=== PATIENT | male | born 1950 | race Caucasian/White ===

== ENCOUNTER → 2018-07-15 | Day surgery (SDC) | payer MEDICARE, BC ==
[2018-07-14 12:05] LABS: BASOPHILS # (AUTO) 0.1 (0.0-0.1); BASOPHILS % 0.5 % (0.0-1.0); EOSINOPHILS # (AUTO) 0.2 (0.0-0.4); EOSINOPHILS % 1.7 % (0.0-6.0); HEMATOCRIT 44.7 % (38.2-49.6); LYMPHOCYTES # (AUTO) 2.1 (1.0-3.2); MEAN CORPUSCULAR HEMOGLOBIN 30.8 pg (28-32); MEAN CORPUSCULAR HGB CONC 33.6 g/dL (31-35); MEAN CORPUSCULAR VOLUME 91.8 fL (81-99); MONOCYTES # (AUTO) 0.6 (0.2-0.8); MONOCYTES % 5.7 % (4.4-11.3); NEUTROPHILS # (AUTO) 6.8 (2.1-6.9); NEUTROPHILS % 69.8 % (38.7-80.0); PLATELET COUNT 239 x10e3/uL (140-360); RED BLOOD COUNT 4.87 x10e6/uL (4.3-5.7); RED CELL DISTRIBUTION WIDTH 15.9 % (11.7-14.4)
[2018-07-14 12:17] LABS: INR 1.66; PROTHROMBIN TIME 18.4 seconds (11.9-14.5)
[2018-07-14 12:24] LABS: ANION GAP 12.4 mmol/L (8-16); CREATININE, SERUM 1.26 mg/dL (0.72-1.25); POTASSIUM 5.4 mmol/L (3.5-5.1)
[~2018-07-15] VITALS: Ht 188 cm; Wt 102.1 kg
[~2018-07-15] MED LIST: FENTANYL CITRATE/PF 100MCG/2 ML INJ ONE; LIDOCAINE HCL 2% LOCAL INJ 5 ML SDV VIAL INJ ONE; LISINOPRIL10 MG PO; MELOXICAM7.5 MG PO; METHIMAZOLE10 MG PO; METOPROLOL TART50 MG PO; PROPOFOL IV EMULSION 10 MG/ML 20 ML VIAL ONE; SODIUM CHLORIDE 0.9% 1000ML 1,000 ML ONE; SYMBICORT 16010.2 GM INH; XARELTO20 MG PO
[2018-07-15 06:51] VITALS: BP 180/111
[2018-07-15 07:56] VITALS: BP 159/101
[2018-07-15 08:05] VITALS: BP 150/96
--- NOTE | 2018-07-15 08:19 | Operative Report ---
DATE OF PROCEDURE: July 15, 2018 PROCEDURE PERFORMED: Direct current cardioversion. PREOPERATIVE DIAGNOSIS: Atrial fibrillation. POSTOPERATIVE DIAGNOSIS: Normal sinus rhythm. ESTIMATED BLOOD LOSS: Zero mL. SPECIMENS REMOVED: None. PROCEDURE DETAILS: After informed consent was obtained, the patient was brought to the endoscopy suite in the fasting, nonsedated state. Anesthesia was used for deep sedation with propofol. After adequate deep sedation was achieved, the patient underwent synchronized direct current cardioversion with 200 joules. This promptly restored normal sinus rhythm. The patient was then recovered by anesthesia successfully. The patient then returned to his room in stable condition. IMPRESSION AND PLAN: This is a 68-year-old man with a history of hypothyroidism and subsequently was found to have paroxysmal atrial fibrillation. He underwent successful direct current cardioversion with jainism of normal sinus rhythm. The patient will remain on metoprolol for AV bernie blockade and Xarelto for his anticoagulation for the next 4 weeks. The patient will follow up in 1 week for monitoring 12-lead electrocardiogram. Job#: [id number]
[2018-07-15 08:20] VITALS: BP 143/92
[2018-07-15 08:45] VITALS: BP 143/92
== END | disposition home or self-care (01) ==
LOC: CATH LAB 06:13
PROVIDERS: ATTEND Internal Medicine Cardiovascular Disease
DX: I48.0 Paroxysmal atrial fibrillation (principal); I10 Essential (primary) hypertension; E11.9 Type 2 diabetes mellitus without complications; J44.9 Chronic obstructive pulmonary disease, unspecified; R94.31 Abnormal electrocardiogram [ECG] [EKG]; E05.90 Thyrotoxicosis, unspecified without thyrotoxic crisis or storm; E03.9 Hypothyroidism, unspecified; I83.90 Asymptomatic varicose veins of unspecified lower extremity; F41.9 Anxiety disorder, unspecified; F17.210 Nicotine dependence, cigarettes, uncomplicated; Z88.8 Allergy status to other drugs, medicaments and biological substances; Z01.810 Encounter for preprocedural cardiovascular examination; Z01.812 Encounter for preprocedural laboratory examination; Z79.02 Long term (current) use of antithrombotics/antiplatelets
CPT/HCPCS: 36415; 80048; 85025; 85610; 92960; 93005; J2001; J7030

== ENCOUNTER 2019-05-07 14:49 | Inpatient (IN) | payer MEDICARE, BC ==
[~2019-05-07] VITALS: Ht 193 cm; Wt 96.8 kg
[~2019-05-07 14:49] MED LIST changes: -LIDOCAINE HCL 2% LOCAL INJ 5 ML SDV VIAL INJ ONE; -PROPOFOL IV EMULSION 10 MG/ML 20 ML VIAL ONE; -SODIUM CHLORIDE 0.9% 1000ML 1,000 ML ONE
--- OUTSIDE RECORDS SUMMARY | 2019-05-07 14:52 | XMS REPORT ---
Author Author [facility] Address Unknown Phone Unavailable Care Team Providers Care Front End Loader Operator Name Role Phone Unavailable Unavailable Payers Payer Name Policy Type Policy Number Effective Date Expiration Date Problems This patient has no known problems. Allergies, Adverse Reactions, Alerts Allergy Name Allergy Type Status Severity Reaction(s) Onset Date Inactive Date Treating Clinician Comments No Known Allergies DA Active U 2019-04-02 00:00:00 Medications This patient has no known medications. Results Test Description Test Time Test Comments Text Results Atomic Results Result Comments IMMUNOGLOBULIN E 2019-04-16 02:07:00 IMMUNOGLOBULIN E (test code=IGE) 229 IU/mL 6-495 Performed At: [address] [id number] Langley MD Ph:[phone] [id number] 16:48:00* Test Item Value Reference Range Comments GLUBED (test code=GLUBED) 201 mg/dL 74-106 Performed by certified offset press operator helper at [facility] [id number] 12:33:00* Test Item Value Reference Range Comments GLUBED (test code=GLUBED) 367 mg/dL 74-106 Performed by certified offset press operator helper at [facility] CBC W/O [id number] 06:39:00* Test Item Value Reference Range Comments WHITE BLOOD CELL (test code=WBC) 27.0 K/mm3 4.5-12.5 RED BLOOD CELL (test code=RBC) 4.92 mill/mm3 4.0-5.8 HEMOGLOBIN (test code=HGB) 14.2 gram/dL 13.0-17.5 HEMATOCRIT (test code=HCT) 45.2 % 42.0-52.0 MEAN CELL VOLUME (test code=MCV) 91.9 fL 80-98 MEAN CELL HGB (test code=MCH) 28.9 picogram 27.0-33.0 MEAN CELL HGB CONCETRATION (test code=MCHC) 31.4 gram/dL 33.0-36.0 RED CELL DISTRIBUTION WIDTH (test code=RDW) 12.9 % 11.6-16.2 PLATELET COUNT (test code=PLT) 359 K/mm3 150-450 MEAN PLATELET VOLUME (test code=MPV) 10.4 fL 6.7-11.0 [id number] 05:01:00* Test Item Value Reference Range Comments GLUBED (test code=GLUBED) 136 mg/dL 74-106 Performed by certified offset press operator helper at [facility] [id number] 20:52:00* Test Item Value Reference Range Comments GLUBED (test code=GLUBED) 383 mg/dL 74-106 Performed by certified offset press operator helper at [facility] [id number] 15:54:00* Test Item Value Reference Range Comments GLUBED (test code=GLUBED) 281 mg/dL 74-106 Performed by certified offset press operator helper at [facility] [id number] 12:57:00* Test Item Value Reference Range Comments GLUBED (test code=GLUBED) 215 mg/dL 74-106 Performed by certified offset press operator helper at [facility] CBC W/MANUAL [id number] 08:32:00* Test Item Value Reference Range Comments WHITE BLOOD CELL (test code=WBC) 30.5 K/mm3 4.5-12.5 RED BLOOD CELL (test code=RBC) 4.84 mill/mm3 4.0-5.8 HEMOGLOBIN (test code=HGB) 14.1 gram/dL 13.0-17.5 HEMATOCRIT (test code=HCT) 44.0 % 42.0-52.0 MEAN CELL VOLUME (test code=MCV) 90.9 fL 80-98 MEAN CELL HGB (test code=MCH) 29.1 picogram 27.0-33.0 MEAN CELL HGB CONCETRATION (test code=MCHC) 32.0 gram/dL 33.0-36.0 RED CELL DISTRIBUTION WIDTH (test code=RDW) 12.9 % 11.6-16.2 RED CELL DISTRIBUTION WIDTH SD (test code=RDW-SD) 42.6 fL 37.0-51.0 PLATELET COUNT (test code=PLT) 370 K/mm3 150-450 MEAN PLATELET VOLUME (test code=MPV) 10.3 fL 6.7-11.0 IMMATURE GRANULOCYTE % (test code=IG%) 1.9 % 0.0-5.0 NUCLEATED RBC % (test code=NRBC%) 0.0 % 0-0 NEUTROPHIL # (test code=NT#) 23.54 K/mm3 1.8-7.7 IMMATURE GRANULOCYTE # (test code=IG#) 0.57 x10 3/uL 0-0.03 LYMPHOCYTE # (test code=LY#) 4.25 K/mm3 1.0-5.0 MONOCYTE # (test code=MO#) 1.95 K/mm3 0-0.8 EOSINOPHIL # (test code=EO#) 0.08 K/mm3 0.0-0.5 BASOPHIL # (test code=BA#) 0.09 K/mm3 0.0-0.2 NUCLEATED RBC # (test code=NRBC#) 0.00 K/mm3 0.0-0.1 MANUAL DIFF REQUIRED (test code=MDIFF) YES STAIN ACCEPTABILITY (test code=STN ACCEPTABLE) STAIN ACCEPTABLE TOTAL CELLS COUNTED (test code=TCC) 115 #CELLS SEGMENTED NEUTROPHILS (test code=SEG) 82.6 % 39-69 BAND NEUTROPHIL (test code=BAND) 0 % 0-10 LYMPHOCYTE (test code=LYMPH) 6.1 % 25-55 REACTIVE LYMPH (test code=RELYMPH) 2.6 % MONOCYTE (test code=MON) 6.9 % 0-10 EOSINOPHIL (test code=EOS) 0 % 0.0-5.0 BASOPHIL (test code=BASO) 0 % 0-1.0 METAMYELOCYTE (test code=META) 0 % 0-0 MYELOCYTE (test code=MYELO) 0.9 % 0.0-0.0 PROMYELOCYTE (test code=PROM) 0.9 % 0-0 MORPHOLOGY COMMENT (test code=MOC) NORMAL PLATELET ESTIMATE (test code=PLTEST) ADEQUATE PLATELET MORPHOLOGY (test code=PLTMORPH) NORMAL IMMATURE FORMS (test code=IMMAT) 0 % 0-0 BASIC METABOLIC [id number] 08:00:00* Test Item Value Reference Range Comments SODIUM (test code=NA) 131 mmol/L 136-145 POTASSIUM (test code=K) 4.0 mmol/L 3.5-5.1 CHLORIDE (test code=CL) 89.0 mmol/L 98-107 CARBON DIOXIDE (test code=CO2) 37.0 mmol/L 21-32 ANION GAP (test code=GAP) 9.0 10-20 GLUCOSE (test code=GLU) 163 mg/dL 74-106 BLOOD UREA NITROGEN (test code=BUN) 43 mg/dL 7-18 GLOMERULAR FILTRATION RATE (test code=GFR) > 60 mL/min >=60 Estimated GFR by using Modified MDRD formula.Chronic kidney disease is defined as either kidney damageor GFR <60 mL/min/1.73 m2 for >3 months. CREATININE (test code=CREAT) 1.00 mg/dL 0.7-1.3 BUN/CREATININE RATIO (test code=BUN/CREA) 43.0 10-20 CALCIUM (test code=CA) 8.6 mg/dL 8.5-10.1 CBC W/MANUAL [id number] 07:19:00* Test Item Value Reference Range Comments WHITE BLOOD CELL (test code=WBC) 30.5 K/mm3 4.5-12.5 RED BLOOD CELL (test code=RBC) 4.84 mill/mm3 4.0-5.8 HEMOGLOBIN (test code=HGB) 14.1 gram/dL 13.0-17.5 HEMATOCRIT (test code=HCT) 44.0 % 42.0-52.0 MEAN CELL VOLUME (test code=MCV) 90.9 fL 80-98 MEAN CELL HGB (test code=MCH) 29.1 picogram 27.0-33.0 MEAN CELL HGB CONCETRATION (test code=MCHC) 32.0 gram/dL 33.0-36.0 RED CELL DISTRIBUTION WIDTH (test code=RDW) 12.9 % 11.6-16.2 RED CELL DISTRIBUTION WIDTH SD (test code=RDW-SD) 42.6 fL 37.0-51.0 PLATELET COUNT (test code=PLT) 370 K/mm3 150-450 MEAN PLATELET VOLUME (test code=MPV) 10.3 fL 6.7-11.0 IMMATURE GRANULOCYTE % (test code=IG%) 1.9 % 0.0-5.0 NUCLEATED RBC % (test code=NRBC%) 0.0 % 0-0 NEUTROPHIL # (test code=NT#) 23.54 K/mm3 1.8-7.7 IMMATURE GRANULOCYTE # (test code=IG#) 0.57 x10 3/uL 0-0.03 LYMPHOCYTE # (test code=LY#) 4.25 K/mm3 1.0-5.0 MONOCYTE # (test code=MO#) 1.95 K/mm3 0-0.8 EOSINOPHIL # (test code=EO#) 0.08 K/mm3 0.0-0.5 BASOPHIL # (test code=BA#) 0.09 K/mm3 0.0-0.2 NUCLEATED RBC # (test code=NRBC#) 0.00 K/mm3 0.0-0.1 MANUAL DIFF REQUIRED (test code=MDIFF) YES STAIN ACCEPTABILITY (test code=STN ACCEPTABLE) TOTAL CELLS COUNTED (test code=TCC) #CELLS SEGMENTED NEUTROPHILS (test code=SEG) % 39-69 LYMPHOCYTE (test code=LYMPH) % 25-55 MONOCYTE (test code=MON) % 0-10 EOSINOPHIL (test code=EOS) % 0.0-5.0 CABOT RINGS (test code=CAB) MORPHOLOGY COMMENT (test code=MOC) PLATELET ESTIMATE (test code=PLTEST) PLATELET MORPHOLOGY (test code=PLTMORPH) CBC W/MANUAL [id number] 07:19:00* Test Item Value Reference Range Comments WHITE BLOOD CELL (test code=WBC) 30.5 K/mm3 4.5-12.5 RED BLOOD CELL (test code=RBC) 4.84 mill/mm3 4.0-5.8 HEMOGLOBIN (test code=HGB) 14.1 gram/dL 13.0-17.5 HEMATOCRIT (test code=HCT) 44.0 % 42.0-52.0 MEAN CELL VOLUME (test code=MCV) 90.9 fL 80-98 MEAN CELL HGB (test code=MCH) 29.1 picogram 27.0-33.0 MEAN CELL HGB CONCETRATION (test code=MCHC) 32.0 gram/dL 33.0-36.0 RED CELL DISTRIBUTION WIDTH (test code=RDW) 12.9 % 11.6-16.2 RED CELL DISTRIBUTION WIDTH SD (test code=RDW-SD) 42.6 fL 37.0-51.0 PLATELET COUNT (test code=PLT) 370 K/mm3 150-450 MEAN PLATELET VOLUME (test code=MPV) 10.3 fL 6.7-11.0 IMMATURE GRANULOCYTE % (test code=IG%) 1.9 % 0.0-5.0 NUCLEATED RBC % (test code=NRBC%) 0.0 % 0-0 NEUTROPHIL # (test code=NT#) 23.54 K/mm3 1.8-7.7 IMMATURE GRANULOCYTE # (test code=IG#) 0.57 x10 3/uL 0-0.03 LYMPHOCYTE # (test code=LY#) 4.25 K/mm3 1.0-5.0 MONOCYTE # (test code=MO#) 1.95 K/mm3 0-0.8 EOSINOPHIL # (test code=EO#) 0.08 K/mm3 0.0-0.5 BASOPHIL # (test code=BA#) 0.09 K/mm3 0.0-0.2 NUCLEATED RBC # (test code=NRBC#) 0.00 K/mm3 0.0-0.1 MANUAL DIFF REQUIRED (test code=MDIFF) YES STAIN ACCEPTABILITY (test code=STN ACCEPTABLE) TOTAL CELLS COUNTED (test code=TCC) #CELLS SEGMENTED NEUTROPHILS (test code=SEG) % 39-69 LYMPHOCYTE (test code=LYMPH) % 25-55 MONOCYTE (test code=MON) % 0-10 EOSINOPHIL (test code=EOS) % 0.0-5.0 CABOT RINGS (test code=CAB) MORPHOLOGY COMMENT (test code=MOC) PLATELET ESTIMATE (test code=PLTEST) PLATELET MORPHOLOGY (test code=PLTMORPH) CBC W/MANUAL [id number] 07:19:00* Test Item Value Reference Range Comments WHITE BLOOD CELL (test code=WBC) 30.5 K/mm3 4.5-12.5 RED BLOOD CELL (test code=RBC) 4.84 mill/mm3 4.0-5.8 HEMOGLOBIN (test code=HGB) 14.1 gram/dL 13.0-17.5 HEMATOCRIT (test code=HCT) 44.0 % 42.0-52.0 MEAN CELL VOLUME (test code=MCV) 90.9 fL 80-98 MEAN CELL HGB (test code=MCH) 29.1 picogram 27.0-33.0 MEAN CELL HGB CONCETRATION (test code=MCHC) 32.0 gram/dL 33.0-36.0 RED CELL DISTRIBUTION WIDTH (test code=RDW) 12.9 % 11.6-16.2 RED CELL DISTRIBUTION WIDTH SD (test code=RDW-SD) 42.6 fL 37.0-51.0 PLATELET COUNT (test code=PLT) 370 K/mm3 150-450 MEAN PLATELET VOLUME (test code=MPV) 10.3 fL 6.7-11.0 IMMATURE GRANULOCYTE % (test code=IG%) 1.9 % 0.0-5.0 NUCLEATED RBC % (test code=NRBC%) 0.0 % 0-0 NEUTROPHIL # (test code=NT#) 23.54 K/mm3 1.8-7.7 IMMATURE GRANULOCYTE # (test code=IG#) 0.57 x10 3/uL 0-0.03 LYMPHOCYTE # (test code=LY#) 4.25 K/mm3 1.0-5.0 MONOCYTE # (test code=MO#) 1.95 K/mm3 0-0.8 EOSINOPHIL # (test code=EO#) 0.08 K/mm3 0.0-0.5 BASOPHIL # (test code=BA#) 0.09 K/mm3 0.0-0.2 NUCLEATED RBC # (test code=NRBC#) 0.00 K/mm3 0.0-0.1 MANUAL DIFF REQUIRED (test code=MDIFF) YES STAIN ACCEPTABILITY (test code=STN ACCEPTABLE) TOTAL CELLS COUNTED (test code=TCC) #CELLS SEGMENTED NEUTROPHILS (test code=SEG) % 39-69 LYMPHOCYTE (test code=LYMPH) % 25-55 MONOCYTE (test code=MON) % 0-10 EOSINOPHIL (test code=EOS) % 0.0-5.0 MORPHOLOGY COMMENT (test code=MOC) PLATELET ESTIMATE (test code=PLTEST) PLATELET MORPHOLOGY (test code=PLTMORPH) CBC W/MANUAL [id number] 07:19:00* Test Item Value Reference Range Comments WHITE BLOOD CELL (test code=WBC) 30.5 K/mm3 4.5-12.5 RED BLOOD CELL (test code=RBC) 4.84 mill/mm3 4.0-5.8 HEMOGLOBIN (test code=HGB) 14.1 gram/dL 13.0-17.5 HEMATOCRIT (test code=HCT) 44.0 % 42.0-52.0 MEAN CELL VOLUME (test code=MCV) 90.9 fL 80-98 MEAN CELL HGB (test code=MCH) 29.1 picogram 27.0-33.0 MEAN CELL HGB CONCETRATION (test code=MCHC) 32.0 gram/dL 33.0-36.0 RED CELL DISTRIBUTION WIDTH (test code=RDW) 12.9 % 11.6-16.2 RED CELL DISTRIBUTION WIDTH SD (test code=RDW-SD) 42.6 fL 37.0-51.0 PLATELET COUNT (test code=PLT) 370 K/mm3 150-450 MEAN PLATELET VOLUME (test code=MPV) 10.3 fL 6.7-11.0 IMMATURE GRANULOCYTE % (test code=IG%) 1.9 % 0.0-5.0 NUCLEATED RBC % (test code=NRBC%) 0.0 % 0-0 NEUTROPHIL # (test code=NT#) 23.54 K/mm3 1.8-7.7 IMMATURE GRANULOCYTE # (test code=IG#) 0.57 x10 3/uL 0-0.03 LYMPHOCYTE # (test code=LY#) 4.25 K/mm3 1.0-5.0 MONOCYTE # (test code=MO#) 1.95 K/mm3 0-0.8 EOSINOPHIL # (test code=EO#) 0.08 K/mm3 0.0-0.5 BASOPHIL # (test code=BA#) 0.09 K/mm3 0.0-0.2 NUCLEATED RBC # (test code=NRBC#) 0.00 K/mm3 0.0-0.1 MANUAL DIFF REQUIRED (test code=MDIFF) YES STAIN ACCEPTABILITY (test code=STN ACCEPTABLE) TOTAL CELLS COUNTED (test code=TCC) #CELLS SEGMENTED NEUTROPHILS (test code=SEG) % 39-69 LYMPHOCYTE (test code=LYMPH) % 25-55 MONOCYTE (test code=MON) % 0-10 MORPHOLOGY COMMENT (test code=MOC) PLATELET ESTIMATE (test code=PLTEST) PLATELET MORPHOLOGY (test code=PLTMORPH) CBC W/MANUAL [id number] 07:19:00* Test Item Value Reference Range Comments WHITE BLOOD CELL (test code=WBC) 30.5 K/mm3 4.5-12.5 RED BLOOD CELL (test code=RBC) 4.84 mill/mm3 4.0-5.8 HEMOGLOBIN (test code=HGB) 14.1 gram/dL 13.0-17.5 HEMATOCRIT (test code=HCT) 44.0 % 42.0-52.0 MEAN CELL VOLUME (test code=MCV) 90.9 fL 80-98 MEAN CELL HGB (test code=MCH) 29.1 picogram 27.0-33.0 MEAN CELL HGB CONCETRATION (test code=MCHC) 32.0 gram/dL 33.0-36.0 RED CELL DISTRIBUTION WIDTH (test code=RDW) 12.9 % 11.6-16.2 RED CELL DISTRIBUTION WIDTH SD (test code=RDW-SD) 42.6 fL 37.0-51.0 PLATELET COUNT (test code=PLT) 370 K/mm3 150-450 MEAN PLATELET VOLUME (test code=MPV) 10.3 fL 6.7-11.0 IMMATURE GRANULOCYTE % (test code=IG%) 1.9 % 0.0-5.0 NUCLEATED RBC % (test code=NRBC%) 0.0 % 0-0 NEUTROPHIL # (test code=NT#) 23.54 K/mm3 1.8-7.7 IMMATURE GRANULOCYTE # (test code=IG#) 0.57 x10 3/uL 0-0.03 LYMPHOCYTE # (test code=LY#) 4.25 K/mm3 1.0-5.0 MONOCYTE # (test code=MO#) 1.95 K/mm3 0-0.8 EOSINOPHIL # (test code=EO#) 0.08 K/mm3 0.0-0.5 BASOPHIL # (test code=BA#) 0.09 K/mm3 0.0-0.2 NUCLEATED RBC # (test code=NRBC#) 0.00 K/mm3 0.0-0.1 MANUAL DIFF REQUIRED (test code=MDIFF) YES STAIN ACCEPTABILITY (test code=STN ACCEPTABLE) TOTAL CELLS COUNTED (test code=TCC) #CELLS SEGMENTED NEUTROPHILS (test code=SEG) % 39-69 LYMPHOCYTE (test code=LYMPH) % 25-55 MONOCYTE (test code=MON) % 0-10 EOSINOPHIL (test code=EOS) % 0.0-5.0 CABOT RINGS (test code=CAB) MORPHOLOGY COMMENT (test code=MOC) PLATELET ESTIMATE (test code=PLTEST) PLATELET MORPHOLOGY (test code=PLTMORPH) [id number] 05:05:00* Test Item Value Reference Range Comments GLUBED (test code=GLUBED) 167 mg/dL 74-106 Performed by certified offset press operator helper at [facility] [id number] 20:58:00* Test Item Value Reference Range Comments GLUBED (test code=GLUBED) 285 mg/dL 74-106 Performed by certified offset press operator helper at [facility] [id number] 16:30:00* Test Item Value Reference Range Comments GLUBED (test code=GLUBED) 190 mg/dL 74-106 Performed by certified offset press operator helper at [facility] [id number] 13:27:00* Test Item Value Reference Range Comments GLUBED (test code=GLUBED) 362 mg/dL 74-106 Performed by certified offset press operator helper [facility]~ - XR CHEST 2 [id number] 13:01:00 FAX: Lamar Patel MD [phone] [place]: [address] St: ADM FAX: Lavern Perez MD [phone] Name: DESMONDMENG CRISTINANE [facility] : 1950 Age/S: 68/M [address] [facility] Unit #: [id number] Loc: V.[address] [place] [address] Phys: Lamar Martinez MD Acct: [id number] Dis Date: Status: ADM IN PHONE #: [phone] Exam Date: 04/10/2019 1248 FAX #: [phone] Reason: pna EXAMS: CPT CODE: [id number] XR CHEST 2 V 26425 REASON FOR EXAM: pna Exam Order Date: 04/10/2019 12:00 AM Ordering Brice: Lamar Martinez MD PROCEDURE: - XR CHEST 2 V COMPARISON: 04/06/2019 FINDINGS: PA and lateral views of the chest show diffuse airspace opacities. No evidence of effusion. The heart size is minimally enlarged. Pulmonary vasculatures are minimally congested. The osseous structures are grossly intact. IMPRESSION: Diffuse as space opacity suggestive of consolidation superimposed on the chronic interstitial disease at 1301 Reported and signed by: Nav Brock M.D. CC: Lamar Martinez MD; Lavern Perez MD Technologist: Anjali Delgado(R) Trnscrd Date/Time/By: 04/10/2019 (4566) : By: JomarVTL Orig Print D/T: S: 04/10/2019 (4342) PAGE 1 Signed Report [id number] 06:29:00* Test Item Value Reference Range Comments GLUBED (test code=GLUBED) 246 mg/dL 74-106 Performed by certified offset press operator helper at [facility] [id number] 20:25:00* Test Item Value Reference Range Comments GLUBED (test code=GLUBED) 270 mg/dL 74-106 Performed by certified offset press operator helper at [facility] ANTINUCLEAR ANTIBODIES [id number] 20:06:00* Test Item Value Reference Range Comments EVA SCREEN (test code=ANASCR) Negative Negative Performed At: [facility] [address] [id number] Kyle L MD Ph:[phone] AB ASPERGILLUS BY [id number] 20:06:00* Test Item Value Reference Range Comments ASPERGILLUS FLAVUS AB (test code=ASPFLA) Negative Neg:<1:1 ASPERGILLUS FUMIGATUS AB (test code=ASPFUM) Negative Neg:<1:1 ASPERGILLUS NIGER AB (test code=ASPNIG) Negative Neg:<1:1 Performed At: [facility] [address] [id number] Sanjai MD Ph:[phone] [id number] 15:57:00* Test Item Value Reference Range Comments GLUBED (test code=GLUBED) 454 mg/dL 74-106 Performed by certified offset press operator helper at [facility] [id number] 11:46:00* Test Item Value Reference Range Comments GLUBED (test code=GLUBED) 336 mg/dL 74-106 Performed by certified offset press operator helper at [facility] [id number] 05:35:00* Test Item Value Reference Range Comments GLUBED (test code=GLUBED) 223 mg/dL 74-106 Performed by certified offset press operator helper at [facility] [id number] 20:45:00* Test Item Value Reference Range Comments GLUBED (test code=GLUBED) 313 mg/dL 74-106 Performed by certified offset press operator helper at [facility] [id number] 15:48:00* Test Item Value Reference Range Comments GLUBED (test code=GLUBED) 250 mg/dL 74-106 Performed by certified offset press operator helper at [facility] [id number] 12:03:00* Test Item Value Reference Range Comments GLUBED (test code=GLUBED) 405 mg/dL 74-106 Performed by certified offset press operator helper at [facility] [id number] 05:38:00* Test Item Value Reference Range Comments GLUBED (test code=GLUBED) 227 mg/dL 74-106 Performed by certified offset press operator helper at [facility] BASIC METABOLIC [id number] 05:35:00* Test Item Value Reference Range Comments SODIUM (test code=NA) 131 mmol/L 136-145 POTASSIUM (test code=K) 4.5 mmol/L 3.5-5.1 CHLORIDE (test code=CL) 87.0 mmol/L 98-107 CARBON DIOXIDE (test code=CO2) 39.0 mmol/L 21-32 ANION GAP (test code=GAP) 9.5 10-20 GLUCOSE (test code=GLU) 232 mg/dL 74-106 BLOOD UREA NITROGEN (test code=BUN) 53 mg/dL 7-18 GLOMERULAR FILTRATION RATE (test code=GFR) 60 mL/min >=60 Estimated GFR by using Modified MDRD formula.Chronic kidney disease is defined as either kidney damageor GFR <60 mL/min/1.73 m2 for >3 months. CREATININE (test code=CREAT) 1.20 mg/dL 0.7-1.3 BUN/CREATININE RATIO (test code=BUN/CREA) 44.2 10-20 CALCIUM (test code=CA) 9.1 mg/dL 8.5-10.1 BASIC METABOLIC [id number] 05:24:00* Test Item Value Reference Range Comments SODIUM (test code=NA) 131 mmol/L 136-145 POTASSIUM (test code=K) 4.5 mmol/L 3.5-5.1 CHLORIDE (test code=CL) 87.0 mmol/L 98-107 CARBON DIOXIDE (test code=CO2) mmol/L 21-32 ANION GAP (test code=GAP) 10-20 GLUCOSE (test code=GLU) mg/dL 74-106 BLOOD UREA NITROGEN (test code=BUN) mg/dL 7-18 GLOMERULAR FILTRATION RATE (test code=GFR) mL/min >=60 CREATININE (test code=CREAT) mg/dL 0.7-1.3 BUN/CREATININE RATIO (test code=BUN/CREA) 10-20 CALCIUM (test code=CA) mg/dL 8.5-10.1 [id number] 21:23:00* Test Item Value Reference Range Comments GLUBED (test code=GLUBED) 330 mg/dL 74-106 Performed by certified offset press operator helper at [facility] [id number] 15:36:00* Test Item Value Reference Range Comments GLUBED (test code=GLUBED) 303 mg/dL 74-106 Performed by certified offset press operator helper at [facility] [id number] 12:18:00* Test Item Value Reference Range Comments GLUBED (test code=GLUBED) 408 mg/dL 74-106 Performed by certified offset press operator helper at [facility] [id number] 12:18:00* Test Item Value Reference Range Comments GLUBED (test code=GLUBED) 406 mg/dL 74-106 Performed by certified offset press operator helper at [facility] [id number] 05:19:00* Test Item Value Reference Range Comments GLUBED (test code=GLUBED) 171 mg/dL 74-106 Performed by certified offset press operator helper at [facility] [id number] 21:04:00* Test Item Value Reference Range Comments GLUBED (test code=GLUBED) 270 mg/dL 74-106 Performed by certified offset press operator helper at [facility] [id number] 16:14:00* Test Item Value Reference Range Comments GLUBED (test code=GLUBED) 123 mg/dL 74-106 Performed by certified offset press operator helper at [facility] [id number] 11:30:00* Test Item Value Reference Range Comments GLUBED (test code=GLUBED) 388 mg/dL 74-106 Performed by certified offset press operator helper at [facility] ANTINUCLEAR ANTIBODIES [id number] 10:16:00* Test Item Value Reference Range Comments EVA SCREEN (test code=ANASCR) Negative Negative Performed At: [facility] [id number] Jaime Louis MD Ph:[phone] AB ASPERGILLUS BY [id number] 10:16:00* Test Item Value Reference Range Comments ASPERGILLUS FLAVUS AB (test code=ASPFLA) NEG:<1:1 ASPERGILLUS FUMIGATUS AB (test code=ASPFUM) NEG:<1:1 ASPERGILLUS NIGER AB (test code=ASPNIG) NEG:<1:1 - XR CHEST 1 [id number] 08:01:00 FAX: Lamar Patel MD [phone] [place]: [address] St: ADM FAX: Lavern Perez MD [phone] FAX: Azeem Shields MD [phone] Name: MENG LOGAN [facility] : 1950 Age/S: 68/M [address] Unit #: [id number] Loc: V.[address] [place] [address] Phys: Azeem Calloway MD Acct: [id number] Dis Date: Status: ADM IN PH ONE #: [phone] Exam Date: 04/06/2019 0754 FAX #: [phone] Reason: ILD EXAMS: CPT CODE: [id number] XR CHEST 1 V 20608 CLINICAL HISTO RY: Interstitial lung disease TECHNIQUE: AP chest x-ray COMPARISON: 04/03/19 IMPRESSION: No signific ant interval change. Diffuse bilateral reticular interstitial opacities, greater on the left. No pleural effusion. Cardiomegaly. at 0801 Reported and signed by: Faiza Saunders D.O. CC: Lamar Martinez MD; Lavern Perez MD; Azeem Calloway MD Technologist: Caitie Delgado(R) Trnscrd Date/Time/By: 04/06/2019 ( 800) : By: [email or web address] Orig Print D/T: S: 04/06/2019 (0859) PAGE 1 Signed Report [id number] 05:44:00* Test Item Value Reference Range Comments GLUBED (test code=GLUBED) 188 mg/dL 74-106 Performed by certified offset press operator helper at [facility] BASIC METABOLIC [id number] 04:57:00* Test Item Value Reference Range Comments SODIUM (test code=NA) 131 mmol/L 136-145 POTASSIUM (test code=K) 4.3 mmol/L 3.5-5.1 CHLORIDE (test code=CL) 90.0 mmol/L 98-107 CARBON DIOXIDE (test code=CO2) 32.0 mmol/L 21-32 ANION GAP (test code=GAP) 13.3 10-20 GLUCOSE (test code=GLU) 188 mg/dL 74-106 BLOOD UREA NITROGEN (test code=BUN) 34 mg/dL 7-18 GLOMERULAR FILTRATION RATE (test code=GFR) > 60 mL/min >=60 Estimated GFR by using Modified MDRD formula.Chronic kidney disease is defined as either kidney damageor GFR <60 mL/min/1.73 m2 for >3 months. CREATININE (test code=CREAT) 0.80 mg/dL 0.7-1.3 BUN/CREATININE RATIO (test code=BUN/CREA) 42.5 10-20 CALCIUM (test code=CA) 9.0 mg/dL 8.5-10.1 [id number] 04:57:00* Test Item Value Reference Range Comments MAGNESIUM (test code=MAG) 1.9 mg/dL 1.8-2.4 [id number] 21:15:00* Test Item Value Reference Range Comments GLUBED (test code=GLUBED) 140 mg/dL 74-106 Performed by certified offset press operator helper at [facility] [id number] 16:26:00* Test Item Value Reference Range Comments GLUBED (test code=GLUBED) 131 mg/dL 74-106 Performed by certified offset press operator helper at [facility] [id number] 12:03:00* Test Item Value Reference Range Comments GLUBED (test code=GLUBED) 130 mg/dL 74-106 Performed by certified offset press operator helper at [facility] SED [id number] 11:27:00* Test Item Value Reference Range Comments SED RATE (test code=SEDW) 37 mm/hr 0-15 WINTROBE METHOD: NORMAL RANGE FOR MEN: 0-9 MM/HR WOMAN: 0-20 MM/HR SED RATE [id number] 11:26:00* Test Item Value Reference Range Comments SED RATE WESTERGREN (test code=SEDW) 37 mm/hr 0-15 [id number] 06:35:00* Test Item Value Reference Range Comments GLUBED (test code=GLUBED) 133 mg/dL 74-106 Performed by certified offset press operator helper at [facility] RHEUMATOID FACTOR [id number] 05:43:00* Test Item Value Reference Range Comments RHEUMATOID FACTOR SCREEN (test code=RA) NEGATIVE NEGATIVE BASIC METABOLIC [id number] 05:27:00* Test Item Value Reference Range Comments SODIUM (test code=NA) 133 mmol/L 136-145 POTASSIUM (test code=K) 3.8 mmol/L 3.5-5.1 CHLORIDE (test code=CL) 94.0 mmol/L 98-107 CARBON DIOXIDE (test code=CO2) 31.0 mmol/L 21-32 ANION GAP (test code=GAP) 11.8 10-20 GLUCOSE (test code=GLU) 127 mg/dL 74-106 BLOOD UREA NITROGEN (test code=BUN) 34 mg/dL 7-18 GLOMERULAR FILTRATION RATE (test code=GFR) > 60 mL/min >=60 Estimated GFR by using Modified MDRD formula.Chronic kidney disease is defined as either kidney damageor GFR <60 mL/min/1.73 m2 for >3 months. CREATININE (test code=CREAT) 0.80 mg/dL 0.7-1.3 BUN/CREATININE RATIO (test code=BUN/CREA) 42.5 10-20 CALCIUM (test code=CA) 9.0 mg/dL 8.5-10.1 BASIC METABOLIC [id number] 05:17:00* Test Item Value Reference Range Comments SODIUM (test code=NA) 133 mmol/L 136-145 POTASSIUM (test code=K) 3.8 mmol/L 3.5-5.1 CHLORIDE (test code=CL) 94.0 mmol/L 98-107 CARBON DIOXIDE (test code=CO2) mmol/L 21-32 ANION GAP (test code=GAP) 10-20 GLUCOSE (test code=GLU) mg/dL 74-106 BLOOD UREA NITROGEN (test code=BUN) mg/dL 7-18 GLOMERULAR FILTRATION RATE (test code=GFR) mL/min >=60 CREATININE (test code=CREAT) mg/dL 0.7-1.3 BUN/CREATININE RATIO (test code=BUN/CREA) 10-20 CALCIUM (test code=CA) mg/dL 8.5-10.1 [id number] 20:46:00* Test Item Value Reference Range Comments GLUBED (test code=GLUBED) 162 mg/dL 74-106 Performed by certified offset press operator helper at [facility] PROCALCITONIN (PCT)2019-04-04 19:16:00* Test Item Value Reference Range Comments PROCALCITONIN (PCT) (test code=PROCAL) 0.70 ng/ml Concentration Interpretation (ng/mL) <0.51 Sepsis is not likely. Local bacterial infection is possible. (LOW RISK for progression to Sepsis) 0.51 - 2.00 Sepsis is possible, but other conditions are known to elevate PCT as well. (MODERATE RISK for progression to Sepsis) > 2.00 Sepsis is likely, unless other causes are known. (HIGH RISK for progression to Severe Sepsis or Septic Shock) 10.00 High likelihood of Severe Sepsis or Septic or higher Shock. *Increased PCT levels may not always be related to systemic bacterial infection.*Low PCT levels do not automatically exclude the presence of bacterial infection.*All results should be interpreted taking into account the patients history. [id number] 16:12:00* Test Item Value Reference Range Comments GLUBED (test code=GLUBED) 156 mg/dL 74-106 Performed by certified offset press operator helper at [facility] [id number] 14:28:00* Test Item Value Reference Range Comments GLYCOSYLATED HEMOGLOBIN (HA1C) (test code=GLYHGB) 7.4 % HbA1 4.8-6.0 ESTIMATED AVERAGE GLUCOSE (test code=EAG) 166 MG/DL - CT CHEST W/O [id number] 09:57:00 Name: MENG LOGAN [facility] : 1950 Age/S: 68 / M [address] [facility] Unit #: [id number] Loc: [place] [address] Phys: Azeem Calloway MD Acct: [id number] Dis Date: Status: ADM IN PHONE #: [phone] Exam Date: 04/04/2019922 FAX #: [phone] Reason: interstitial lung disease EXAMS: CPT CODE: [id number] CT CHEST W/O CONTRAST 91678 HISTORY: interstitial lung disease ; hypoxia; pneumonia TECHNIQUE: [address] images were obtained through the chest without contrast. Automated exposure control for dose reduction. DLP: 418 mGy-cm COMPARISON: Chest x-ray 04/13/19 FINDINGS: Statements: Lack of intravenous contrast limits evaluation of mediastinal contents. Lungs: Patchy bilateral groundglass opacity. Bilateral peripheral/basilar interlobular septal thickening and honeycombing. No pleural effusion. Bibasilar calcified pleural plaques. Mild bibasilar traction bronchiectasis. Central airways are patent. Cardiovascular: Cardiomegaly. No pericardial effusion. Coronary artery and thoracic aortic vascular calcification. No t horacic aortic aneurysm. Enlarged central pulmonary arteries, suggesting p ulmonary arterial hypertension. Mediastinum: Mildly enlarged paratracheal, subcarinal, and right hilar nodes. Visualized thyroid is un remarkable. Normal esophagus. Included upper abdomen: Calcified gr anulomas of the spleen. Included upper abdominal contents are otherwise un remarkable. Bones and superficial soft tissues: Degenerative hopikns es of the spine and shoulders. IMPRESSION: Patchy bilateral groundglass opacity. Bilateral peripheral/basilar interlobular septal thickening and honeycombing. Findings compatible with usual interstitial pneumonia/pulmonary fibrosis. Superimposed a cute airspace disease may be present. Cardiomegaly. Enlarged c entral pulmonary arteries, suggesting pulmonary arterial hypertension. Mild mediastinal lymphadenopathy PAGE 1 Signed Report (CONTINUED) Name: MENG LOGAN [facility] : 1950 Age/S: 68 / M [address] [facility] Unit #: [id number] Loc: [place] [address] Phys: Azeem Calloway MD Acct: [id number] Dis Date: Status: ADM IN PHONE #: [phone] Exam Date: 03/2019 FAX #: [phone] Reason: interstitial lung disease EXAMS: CPT CODE: [id number] CT CHEST W/O CONTRAST 42838 <Continued> at 0957 Reported and signed by: Faiza Saunders D.O. CC: Lavern Perez MD; Azeem Calloway MD; Rolan Foreman Technologist:Sean Espinoza RT(R),(MR),(CT) CTDI: DLP: Trnscb Date/Time: 04/04/2019 (0957) [email or web address] Orig Print D/T: S: 04/04/2019 (1000) CTDI: DLP: PAGE 2 Signed Report BASIC METABOLIC [id number] 08:37:00* Test Item Value Reference Range Comments SODIUM (test code=NA) 135 mmol/L 136-145 POTASSIUM (test code=K) 4.0 mmol/L 3.5-5.1 CHLORIDE (test code=CL) 99.0 mmol/L 98-107 CARBON DIOXIDE (test code=CO2) 26.0 mmol/L 21-32 ANION GAP (test code=GAP) 14.0 10-20 GLUCOSE (test code=GLU) 259 mg/dL 74-106 BLOOD UREA NITROGEN (test code=BUN) 38 mg/dL 7-18 RESULT VERIFIED BY REPEAT ANALYSIS GLOMERULAR FILTRATION RATE (test code=GFR) > 60 mL/min >=60 Estimated GFR by using Modified MDRD formula.Chronic kidney disease is defined as either kidney damageor GFR <60 mL/min/1.73 m2 for >3 months. CREATININE (test code=CREAT) 0.90 mg/dL 0.7-1.3 BUN/CREATININE RATIO (test code=BUN/CREA) 42.2 10-20 CALCIUM (test code=CA) 8.7 mg/dL 8.5-10.1 T3 [id number] 08:08:00* Test Item Value Reference Range Comments T3 FREE (test code=T3F) 6.6 pg/mL 2.0-4.4 Performed At: [facility] [address] [id number] Jaime Louis MD Ph:[phone] BASIC METABOLIC [id number] 07:51:00* Test Item Value Reference Range Comments SODIUM (test code=NA) 135 mmol/L 136-145 POTASSIUM (test code=K) 4.0 mmol/L 3.5-5.1 CHLORIDE (test code=CL) 99.0 mmol/L 98-107 CARBON DIOXIDE (test code=CO2) mmol/L 21-32 ANION GAP (test code=GAP) 10-20 GLUCOSE (test code=GLU) mg/dL 74-106 BLOOD UREA NITROGEN (test code=BUN) mg/dL 7-18 GLOMERULAR FILTRATION RATE (test code=GFR) mL/min >=60 CREATININE (test code=CREAT) mg/dL 0.7-1.3 BUN/CREATININE RATIO (test code=BUN/CREA) 10-20 CALCIUM (test code=CA) mg/dL 8.5-10.1 AB HIV 1 [id number] 13:23:00* Test Item Value Reference Range Comments AB HIV 1 2 (test code=RPV50CS) Nonreactive NonReactive It is recognized that currently available assays for thedetection of antibodies to HIV-1 and/or HIV-2 may notdetect all infected individuals. A negative test result doesnot exclude the possibility of exposure to or infection withHIV. HIV antibodies may be undetectable in some stages ofthe infection and in some clinical conditions. RHEUMATOID FACTOR [id number] 11:14:00* Test Item Value Reference Range Comments RHEUMATOID FACTOR SCREEN (test code=RA) NEGATIVE NEGATIVE COMPREHENSIVE METABOLIC [id number] 08:40:00* Test Item Value Reference Range Comments SODIUM (test code=NA) 133 mmol/L 136-145 POTASSIUM (test code=K) 3.8 mmol/L 3.5-5.1 CHLORIDE (test code=CL) 99.0 mmol/L 98-107 CARBON DIOXIDE (test code=CO2) 24.0 mmol/L 21-32 ANION GAP (test code=GAP) 13.8 10-20 GLUCOSE (test code=GLU) 184 mg/dL 74-106 BLOOD UREA NITROGEN (test code=BUN) 51 mg/dL 7-18 GLOMERULAR FILTRATION RATE (test code=GFR) > 60 mL/min >=60 Estimated GFR by using Modified MDRD formula.Chronic kidney disease is defined as either kidney damageor GFR <60 mL/min/1.73 m2 for >3 months. CREATININE (test code=CREAT) 1.00 mg/dL 0.7-1.3 BUN/CREATININE RATIO (test code=BUN/CREA) 51.0 10-20 TOTAL PROTEIN (test code=PROT) 7.1 gram/dL 6.4-8.2 ALBUMIN (test code=ALB) 2.6 g/dL 3.4-5.0 GLOBULIN (test code=GLOB) 4.5 gram/dL 2.7-4.2 ALBUMIN/GLOBULIN RATIO (test code=A/G) 0.6 0.75-1.50 CALCIUM (test code=CA) 9.0 mg/dL 8.5-10.1 BILIRUBIN TOTAL (test code=BILT) 1.10 mg/dL 0.0-1.0 SGOT/AST (test code=AST) 18 IUnit/L 15-37 SGPT/ALT (test code=ALT) 22 IUnit/L 12-78 ALKALINE PHOSPHATASE TOTAL (test code=ALKP) 81 IUnit/L 45-117 Note change in reference range due to change in reagent. LACTIC DEHYDROGENASE(LDH)2019-04-03 08:40:00* Test Item Value Reference Range Comments LACTIC DEHYDROGENASE(LDH) (test code=LDH) 296 IUnit/L 84-246 - XR CHEST 1 [id number] 08:29:00 FAX: Lavern Perez MD [phone] [place]: St: ADM FAX: Azeem Shields MD [phone] FAX: Rolan Munguia MD [phone] Name: MENG LOGAN [facility] : 1950 Age/S: 68/M [address] [facility] Unit #: [id number] Loc: [address] [place] [address] Phys: Azeem Calloway MD Acct: [id number] Dis Date: Status: ADM IN PH ONE #: [phone] Exam Date: 04/03/2019 0735 FAX #: [phone] Reason: chf EXAMS: CPT CODE: [id number] XR CHEST 1 V 36863 EXAM: Chest x- ray, one view; INFORMATION: CHF, sepsis, hypoxia, pneumonia; IMPRESSION: No significant change compared with yesterday's s tudy; infiltrative changes or edema superimposed on underlying pulmonary fibrosis. Persistent cardiomegaly. at 0829 Reported and signed by: Ross Choudhury CC: Lavern Perez MD; Azeem Calloway MD; Rolan Rao i Technologist: Rios Rutherford RT(R); TIP VALERO RT(R) Trnscrd Date/Time/By: 04/03/2019 (828) : By: Lisbet Orig Print D/T : S: 04/03/2019 (6261) PAGE 1 Sig tye Report CBC W/O [id number] 08:20:00* Test Item Value Reference Range Comments WHITE BLOOD CELL (test code=WBC) 12.5 K/mm3 4.5-12.5 RED BLOOD CELL (test code=RBC) 4.08 mill/mm3 4.0-5.8 HEMOGLOBIN (test code=HGB) 12.1 gram/dL 13.0-17.5 HEMATOCRIT (test code=HCT) 36.7 % 42.0-52.0 MEAN CELL VOLUME (test code=MCV) 90.0 fL 80-98 MEAN CELL HGB (test code=MCH) 29.7 picogram 27.0-33.0 MEAN CELL HGB CONCETRATION (test code=MCHC) 33.0 gram/dL 33.0-36.0 RED CELL DISTRIBUTION WIDTH (test code=RDW) 13.2 % 11.6-16.2 PLATELET COUNT (test code=PLT) 197 K/mm3 150-450 MEAN PLATELET VOLUME (test code=MPV) 11.3 fL 6.7-11.0 COMPREHENSIVE METABOLIC [id number] 08:20:00* Test Item Value Reference Range Comments SODIUM (test code=NA) 133 mmol/L 136-145 POTASSIUM (test code=K) 3.8 mmol/L 3.5-5.1 CHLORIDE (test code=CL) 99.0 mmol/L 98-107 CARBON DIOXIDE (test code=CO2) mmol/L 21-32 ANION GAP (test code=GAP) 10-20 GLUCOSE (test code=GLU) mg/dL 74-106 BLOOD UREA NITROGEN (test code=BUN) mg/dL 7-18 GLOMERULAR FILTRATION RATE (test code=GFR) mL/min >=60 CREATININE (test code=CREAT) mg/dL 0.7-1.3 BUN/CREATININE RATIO (test code=BUN/CREA) 10-20 TOTAL PROTEIN (test code=PROT) gram/dL 6.4-8.2 ALBUMIN (test code=ALB) g/dL 3.4-5.0 GLOBULIN (test code=GLOB) gram/dL 2.7-4.2 ALBUMIN/GLOBULIN RATIO (test code=A/G) 0.75-1.50 CALCIUM (test code=CA) mg/dL 8.5-10.1 BILIRUBIN TOTAL (test code=BILT) mg/dL 0.0-1.0 SGOT/AST (test code=AST) IUnit/L 15-37 SGPT/ALT (test code=ALT) IUnit/L 12-78 ALKALINE PHOSPHATASE TOTAL (test code=ALKP) IUnit/L 45-117 LACTIC DEHYDROGENASE(LDH)2019-04-03 08:20:00* Test Item Value Reference Range Comments LACTIC DEHYDROGENASE(LDH) (test code=LDH) IUnit/L 84-246 PROCALCITONIN (PCT)2019-04-02 16:35:00* Test Item Value Reference Range Comments PROCALCITONIN (PCT) (test code=PROCAL) 1.16 ng/ml Concentration Interpretation (ng/mL) <0.51 Sepsis is not likely. Local bacterial infection is possible. (LOW RISK for progression to Sepsis) 0.51 - 2.00 Sepsis is possible, but other conditions are known to elevate PCT as well. (MODERATE RISK for progression to Sepsis) > 2.00 Sepsis is likely, unless other causes are known. (HIGH RISK for progression to Severe Sepsis or Septic Shock) 10.00 High likelihood of Severe Sepsis or Septic or higher Shock. *Increased PCT levels may not always be related to systemic bacterial infection.*Low PCT levels do not automatically exclude the presence of bacterial infection.*All results should be interpreted taking into account the patients history. LACTIC [id number] 16:28:00* Test Item Value Reference Range Comments LACTIC ACID (test code=LACT) 1.8 mmol/L 0.4-1.9 T4 [id number] 16:28:00* Test Item Value Reference Range Comments T4 FREE (test code=T4F) 3.49 ng/dL 0.76-1.46 THYROID STIMULATING [id number] 13:51:00* Test Item Value Reference Range Comments THYROID STIMULATING HORMONE (test code=TSH) < 0.005 uIU/mL 0.36-3.74 TSH REFERENCE RANGES: EUTHYROID: 0.35 - 4.3 mIU/mL HYPO : > 5.5 mIU/mL HYPER : < 0.35 mIU/mL B-TYPE NATRIURETIC [id number] 13:24:00* Test Item Value Reference Range Comments B-TYPE NATRIURETIC PEPTIDE (test code=BNP) 407.65 pgram/mL 0-100 BASIC METABOLIC [id number] 12:36:00* Test Item Value Reference Range Comments SODIUM (test code=NA) 132 mmol/L 136-145 POTASSIUM (test code=K) 4.8 mmol/L 3.5-5.1 CHLORIDE (test code=CL) 98.0 mmol/L 98-107 CARBON DIOXIDE (test code=CO2) 24.0 mmol/L 21-32 ANION GAP (test code=GAP) 14.8 10-20 GLUCOSE (test code=GLU) 144 mg/dL 74-106 BLOOD UREA NITROGEN (test code=BUN) 44 mg/dL 7-18 GLOMERULAR FILTRATION RATE (test code=GFR) 47 mL/min >=60 Estimated GFR by using Modified MDRD formula.Chronic kidney disease is defined as either kidney damageor GFR <60 mL/min/1.73 m2 for >3 months. CREATININE (test code=CREAT) 1.50 mg/dL 0.7-1.3 BUN/CREATININE RATIO (test code=BUN/CREA) 29.3 10-20 CALCIUM (test code=CA) 8.9 mg/dL 8.5-10.1 [id number] 12:36:00* Test Item Value Reference Range Comments TROPONIN-I (test code=TROPI) <0.015 ng/mL 0-0.045 CBC W/O [id number] 12:35:00* Test Item Value Reference Range Comments WHITE BLOOD CELL (test code=WBC) 19.6 K/mm3 4.5-12.5 RED BLOOD CELL (test code=RBC) 4.41 mill/mm3 4.0-5.8 HEMOGLOBIN (test code=HGB) 12.7 gram/dL 13.0-17.5 HEMATOCRIT (test code=HCT) 41.2 % 42.0-52.0 MEAN CELL VOLUME (test code=MCV) 93.4 fL 80-98 MEAN CELL HGB (test code=MCH) 28.8 picogram 27.0-33.0 MEAN CELL HGB CONCETRATION (test code=MCHC) 30.8 gram/dL 33.0-36.0 RED CELL DISTRIBUTION WIDTH (test code=RDW) 13.4 % 11.6-16.2 PLATELET COUNT (test code=PLT) 235 K/mm3 150-450 MEAN PLATELET VOLUME (test code=MPV) 11.4 fL 6.7-11.0 - XR CHEST 1 [id number] 12:27:00 FAX: Lavern Perez MD [phone] [place]: St: REG FAX: Francisco Javier Dong DO Name: MENG LOGAN [facility] : 1950 Age/S: 68/M [address] [facility] Unit #: [id number] Loc: [place] [address] Phys: Francisco Javier Dong DO Acct: [id number] Dis Date: Status: REG ER PHONE #: [phone] Exam Date: 04/02/2019 1209 FAX #: [phone] Reason: Shortness of Breath EXAMS: CPT CODE: [id number] XR CHEST 1 V 38130 HISTORY: Shortness of breath. COMPARISON: None available. Bilateral infiltrates superimposed on scarring. No effusion or congestion. Bullous changes in the upper lobes. Moderate cardiomegaly. IMPRESSION: Dense bilateral infiltrates superimposed on scarring. No effusion or congestion. at 1227 Reported and signed by: Neymar Chaves M.D. CC: Lavern Perez MD; Francisco Javier Dong DO Technologist: GUTIERREZ DEE JR Trnflrd Date/Time/By: 04/02/2019 (1227) : By: [email or web address] Orig Print D/T: S: 04/02/2019 (7507) PAGE 1 Signed Report BASIC METABOLIC [id number] 12:25:00* Test Item Value Reference Range Comments SODIUM (test code=NA) 132 mmol/L 136-145 POTASSIUM (test code=K) 4.8 mmol/L 3.5-5.1 CHLORIDE (test code=CL) 98.0 mmol/L 98-107 CARBON DIOXIDE (test code=CO2) mmol/L 21-32 ANION GAP (test code=GAP) 10-20 GLUCOSE (test code=GLU) mg/dL 74-106 BLOOD UREA NITROGEN (test code=BUN) mg/dL 7-18 GLOMERULAR FILTRATION RATE (test code=GFR) mL/min >=60 CREATININE (test code=CREAT) mg/dL 0.7-1.3 BUN/CREATININE RATIO (test code=BUN/CREA) 10-20 CALCIUM (test code=CA) mg/dL 8.5-10.1 [id number] 12:25:00* Test Item Value Reference Range Comments TROPONIN-I (test code=TROPI) ng/mL 0-0.045 - NM THYROID SCAN AND [id number] 08:39:00 FAX: Lavern Perez MD [phone] [place]: St: DEP Name: MENG NGUYEN [facility] : [birth year] Age/S: 68/M [address] [facility] Unit #: [id number] Loc: [place] [address] Phys: Lavern Perez MD Acct: [id number] Dis Date: Status: DEP CLI PHONE #: [phone] Exam Date: 03/25/2019 0817 FAX #: [phone] Reason: E06.90 EXAMS: CPT CODE: [id number] NM THYROID SCAN AND UP TAKE 10787 HISTORY: E06.90. COM PARISON: None available. Thyroid scan and thyroid uptake: 313.7 uC i of I-123. 24 uptake was calculated to 42.7% which is in the hyperthyroid range. The normal range is between 10-30%. Thyroid scan: Di ffuse intense uptake in both thyroid lobes appear symmetrical. No hot or c old nodules are noted. IMPRESSION: No hot or c old nodules. The 24-hour uptake is 42.7% which is within the hyperthyroi d range. at 0839 Reported and signed by: Neymar Chaves M.D. CC: Lavern Perez MD Kang hnologist: MARC ALLEN Trnscrd Date/T laura/By: 03/26/2019 (0839) : By: [email or web address] Orig Print D/T: S: 9 (3990) PAGE 1 Signed Report
[2019-05-07] MEDS ORDERED: ONDANSETRON HCL INJ 2MG/ML 2ML 2 MG/ML VIAL IV STA (14:53)
[2019-05-07] MEDS ORDERED: MORPHINE SULFATE 2 MG/ML SYR 1ML IV STA (14:53)
[2019-05-07] MEDS ORDERED: MORPHINE SULFATE INJ 4 MG/ML INJ 1ML ONE (15:41)
[2019-05-07 15:44] LABS: BASOPHILS # (AUTO) 0.1 (0.0-0.1); BASOPHILS % 0.4 % (0.0-1.0); BILIRUBIN,URINE NEGATIVE (NEGATIVE); CLARITY,URINE SL CLOUDY (CLEAR); COLOR,URINE YELLOW (YELLOW); EOSINOPHILS % 0.1 % (0.0-6.0); HEMATOCRIT 40.2 % (38.2-49.6); HEMOGLOBIN 13.5 g/dL (14.0-18.0); KETONES,URINE NEGATIVE (NEGATIVE); LEUKOCYTE ESTERASE ,URINE NEGATIVE (NEGATIVE); LYMPHOCYTES # (AUTO) 1.8 (1.0-3.2); LYMPHOCYTES % 10.9 % (18.0-39.1); MEAN CORPUSCULAR HEMOGLOBIN 30.6 pg (28-32); MEAN CORPUSCULAR HGB CONC 33.6 g/dL (31-35); MEAN CORPUSCULAR VOLUME 91.2 fL (81-99); MONOCYTES # (AUTO) 0.8 (0.2-0.8); MONOCYTES % 5.2 % (4.4-11.3); NEUTROPHILS # (AUTO) 12.6 (2.1-6.9); NEUTROPHILS % 78.7 % (38.7-80.0); NITRITE,URINE NEGATIVE (NEGATIVE); PLATELET COUNT 292 x10e3/uL (140-360); PROTEIN,URINE DIPSTICK NEGATIVE (NEGATIVE); RED BLOOD COUNT 4.41 x10e6/uL (4.3-5.7); RED CELL DISTRIBUTION WIDTH 16.5 % (11.7-14.4); URINE UROBILINOGEN 0.2 mg/dL (0.2 - 1)
[2019-05-07 15:56] LABS: INR 1.61; PROTHROMBIN TIME 19.8 seconds (11.9-14.5)
[2019-05-07 15:57] LABS: PARTIAL THROMBOPLASTIN TIME 34.3 seconds (23.8-35.5)
[2019-05-07 16:00] LABS: BACTERIA,URINE RARE /HPF; EPITHELIAL CELLS,URINE FEW /LPF; RBC,URINE 0-5 /HPF (0-5); WBC,URINE (MAN) 0-5 /HPF (0-5)
[2019-05-07] MEDS ORDERED: MORPHINE SULFATE INJ 4 MG/ML INJ 1ML IV ONE (16:00)
[2019-05-07 16:07] LABS: ALANINE AMINOTRANSFERASE 28 IU/L (0-55); ALBUMIN 3.8 g/dL (3.5-5.0); ALBUMIN/GLOBULIN RATIO 1.2 (0.8-2.0); ALKALINE PHOSPHATASE 76 IU/L (40-150); AMYLASE 44 U/L (25-125); ANION GAP 13.6 mmol/L (8-16); BLOOD UREA NITROGEN 28 mg/dL (7-26); BUN/CREATININE RATIO 25 (6-25); CALCIUM 9.7 mg/dL (8.4-10.2); CARBON DIOXIDE 33 mmol/L (22-29); CHLORIDE 91 mmol/L (98-107); CREATINE KINASE 96 IU/L (30-200); CREATININE, SERUM 1.12 mg/dL (0.72-1.25); EST GLOMERULAR FILTRATION RATE > 60 ML/MIN (60-); GLUCOSE 194 mg/dL (74-118); LIPASE 19 U/L (8-78); POTASSIUM 4.6 mmol/L (3.5-5.1); SODIUM 133 mmol/L (136-145)
[2019-05-07 16:09] LABS: ABG HCO3 32 mmol/L (23-28); ABG PCO2 44 mmHg (41-51); ABG PH 7.46 (7.31-7.41); ABG PO2 51 mmHg (80-105)
--- NOTE | 2019-05-07 16:12 | NUR ---
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 PT REPEATS PHRASE, "IM NOT AN INVALID." PT KEEPS TALKING ABOUT BEING IN [place] AND POOR EXPERIENCE. PT INSIST HE IS NOT SICK, BUT STATES PAIN TO ENTIRE RT ABD AND UP TO SHOULDERS NOW. PT BEGAN ONCE ARRIVED TO ER, ORGINALLY CONCERN WAS SOB AND PNEUMONIA BY DR CASILLAS'S OFFICE. REPORT BY EMS PT WAS SCREAMING AT STAFF AND CONCERNED IF PT WAS HYPOXIC; HOWEVER, PT STATES HE KNOWS HE WAS YELLING AND RUDE WITH STAFF BECAUSE THEY WOULDNT EXPLAIN HIS HEALTH DX TO HIS SATISFACTION. PT AAOX4, BUT SEEMS FORGETFUL AT TIMES. PT VERY IMPATIENT WITH STAFF.
--- NOTE | 2019-05-07 16:42 | Diagnostic Imaging Report ---
Examination: Single AP view of the chest. COMPARISON: None. INDICATION: Shortness of breath DISCUSSION: Lines/tubes: None. Lungs: Reticular opacities. Pleura: No pleural effusion or pneumothorax. Heart and mediastinum: Prominent heart size. Bones and soft tissues: No acute bony abnormalities. IMPRESSION: 1. Bilateral reticular opacities likely reflective of interstitial lung disease Signed by: Dr. Malachi Perdue M.D. on 05/07/2019 4:39 PM
--- NOTE | 2019-05-07 17:09 | NUR ---
PT STATES ABD PAIN NOW TO RT LOWER AND UPPER ABD AND SHOULDER. NOTIFIED. MD KUMAR LUGO PT. CALLED RADIOLOGY REGARDING CT ETA.
[2019-05-07 17:15] LABS: LYMPHOCYTES % (MANUAL) 4 % (19-48); MONOCYTES % (MANUAL) 4 % (3.4-9.0); NEUTROPHILS % (MANUAL) 82 % (40-74); PLATELET ESTIMATE ADEQUATE; PLATELET MORPHOLOGY COMMENT NORMAL; RBC MORPHOLOGY COMMENT NORMAL
[2019-05-07] MEDS ORDERED: PROMETHAZINE 12.5MG/ NACL 0.9% 12.5 MG/50 ML BAG IV ONE (17:45)
[2019-05-07] MEDS ORDERED: IOPAMIDOL 370 MG/ML 200 ML INFUS..BTL INJ ONE (18:04)
[2019-05-07] MEDS ORDERED: SODIUM CHLORIDE 0.9% 50ML 50 ML ONE (18:04)
--- NOTE | 2019-05-07 18:14 | Diagnostic Imaging Report ---
Examination: CT head without contrast Clinical Indication: Confusion. Technique: Transaxial noncontrast images from the skull base through the vertex were obtained. Sagittal and coronal reformatted images were done. Dose modulation, iterative reconstruction, and/or weight based adjustment of the mA/kV was utilized to reduce the radiation dose to as low as reasonably achievable. Comparison: None. Findings: Scalp: No abnormalities. Bones: Intact. No fractures. No blastic or lytic lesions. Brain sulci: Appropriate for patient's age. Ventricles: Normal in size and configuration. No hydrocephalus. . Extra-axial space: No abnormalities. Parenchyma: There are patchy areas of low-attenuation within subcortical and periventricular white matter, nonspecific, but could represent microvascular ischemic disease. No masses, hemorrhage, or acute or chronic cortical based vascular insults. Suprasellar region: No abnormalities. Craniocervical junction: The foramen magnum is patent. No Chiari one malformation. Incidental findings: Atherosclerotic calcification of the cavernous and supraclinoid internal carotid arteries. Impression: 1. No acute intracranial finding. 2. Mild chronic microvascular ischemic change. Signed by: Dr. Aurea Forde M.D. on 05/07/2019 6:10 PM
[2019-05-07] MEDS ORDERED: SODIUM CHLORIDE 0.9% 1000ML 1,000 ML ONE (18:27)
[2019-05-07] MEDS ORDERED: PIPER-TAZ 3.375 GM 50 ML IV ONE (18:30)
[2019-05-07] MEDS ORDERED: SODIUM CHLORIDE 0.9% 1000ML 1,000 ML IV STA ×3 (18:34→18:55)
--- NOTE | 2019-05-07 18:37 | Diagnostic Imaging Report ---
EXAMINATION: CT of the abdomen and pelvis with contrast. TECHNIQUE: Helical CT images of the abdomen and pelvis were performed from the lung bases to the lesser trochanters after the intravenous administration of 100 cc of Isovue 300 and the oral administration of none. Coronal and sagittal reformatted images were obtained.Dose modulation, iterative reconstruction, and/or weight based adjustment of the mA/kV was utilized to reduce the radiation dose to as low as reasonably achievable. COMPARISON: None. CLINICAL HISTORY:Abdominal pain DISCUSSION: ABDOMEN/PELVIS: LOWER THORAX:Pulmonary fibrosis base. Heart is enlarged. HEPATOBILIARY: Calcification above the right hepatic lobe. No intra-or extrahepatic biliary ductal dilation. The gallbladder is normal. SPLEEN: Calcifications within the spleen. PANCREAS: No focal masses or ductal dilatation. ADRENALS: No adrenal nodules. KIDNEYS/URETERS: No hydronephrosis, stones, or solid mass lesions. PELVIC ORGANS/BLADDER: The bladder is normal. PERITONEUM/RETROPERITONEUM: Free air within the abdomen. Free fluid within the pelvis. LYMPH NODES: No intra-abdominal, retroperitoneal, pelvic or inguinal lymphadenopathy. VESSELS: Vascular calcifications. GI TRACT: No distention or wall thickening. Scattered diverticulosis. BONES AND SOFT TISSUE: Multilevel lumbar spondylosis. No soft tissue abnormalities. IMPRESSION: Pneumoperitoneum. The exact etiology is indeterminate but may be secondary to perforated colonic diverticula. Mild free fluid. Pulmonary fibrosis of the lung base. Discussed with ER Physician at 630pm. Signed by: Dr. Malachi Perdue M.D. on 05/07/2019 6:33 PM
[2019-05-07] MEDS ORDERED: ONDANSETRON HCL INJ 2MG/ML 2ML 2 MG/ML VIAL ONE (18:39)
[2019-05-07] MEDS ORDERED: DEXAMETHASONE SOD PHOS INJ 4 MG/ML VIAL ONE (18:39)
[2019-05-07] MEDS ORDERED: PROPOFOL IV EMULSION 10 MG/ML 20 ML VIAL ONE (18:39)
[2019-05-07] MEDS ORDERED: ETOMIDATE 2 MG/ML 10 ML INJ IV ONE (18:39)
[2019-05-07] MEDS ORDERED: SEVOFLURANE INHAL SOLN 250 ML PEN BTL ONE (18:39)
[2019-05-07] MEDS ORDERED: SUCCINYLCHOLINE 200 MG/10 ML SYR ONE (18:39)
[2019-05-07] MEDS ORDERED: PHENYLEPHRINE HCL 1% 10 MG/ML VIAL ONE (18:39)
--- NOTE | 2019-05-07 18:55 | NUR ---
REPORT TO DONALDO MEDEIROS
[2019-05-07] MEDS ORDERED: HYDROMORPHONE 1MG/1ML INJ IV PRN (19:00)
[2019-05-07] MEDS ORDERED: MORPHINE SULFATE 2 MG/ML SYR 1ML IV PRN (19:00)
[2019-05-07] MEDS ORDERED: ONDANSETRON HCL INJ 2MG/ML 2ML 2 MG/ML VIAL IV PRN ×2 (19:00→20:45)
[2019-05-07] MEDS ORDERED: METRONIDAZOLE 500MG/NS 100ML 100 ML IV SCH (19:02)
[2019-05-07] MEDS ORDERED: METRONIDAZOLE 500MG/NS 100ML 100 ML IV ONE (19:06)
[2019-05-07] MEDS ORDERED: HYDROMORPHONE 2MG/ML 2 MG/ML ML IV PRN (19:15)
[2019-05-07] MEDS ORDERED: MORPHINE SULFATE INJ 4 MG/ML INJ 1ML IV PRN ×2 (19:15→20:45)
--- NOTE | 2019-05-07 19:17 | NUR ---
FELICE AT BEDSIDE, BRITTNEY DONE. BROTHER ALISSON CALLED PER PT REQUEST. BROTHER'S PHONE NUMBER [phone] (LIVES IN [place])
--- NOTE | 2019-05-07 19:32 | NUR ---
REPORT TO OR NURSE
--- NOTE | 2019-05-07 19:35 | NUR ---
CALLED PT'S BROTHER FOR ETA. 10 MIN ETA
--- NOTE | 2019-05-07 19:40 | NUR ---
PATIENT LEFT TO OR WITH OR NURSE
[2019-05-07] MEDS ORDERED: HEPARIN SOD/SOD CHLORIDE 1,000 ML ONE (19:41)
[2019-05-07 21:00] VITALS: BP 135/86
[2019-05-07] MEDS ORDERED: PROPOFOL IV EMULSION 10MG/ML 100 ML ONE (21:08)
[2019-05-07] MEDS: SODIUM CHLORIDE 0.9% 250ML IRRIG IR SCH (21:37)
[2019-05-07 22:00] VITALS: BP 146/80
[2019-05-07 22:00] LABS: ABG PCO2 54 mmHg (41-51); ABG PH 7.29 (7.31-7.41); ABG PO2 360 mmHg (80-105)
[2019-05-07] MEDS ORDERED: METRONIDAZOLE 500 MG TAB PO SCH (22:00)
[2019-05-07 22:01] LABS: ABG HCO3 27 mmol/L (23-28)
[2019-05-07] MEDS: SODIUM CHLORIDE 0.9% 1000ML 1,000 ML IV SCH (22:03)
[2019-05-07 22:27] VITALS: BP 146/80
[2019-05-07 23:00] VITALS: BP 64/53
[2019-05-07] MEDS ORDERED: DEXMEDETOMIDINE HCL 200 MCG in SODIUM CHLORIDE 0.9% 50ML 48 ML IV PRN (23:00)
[2019-05-07] MEDS ORDERED: DEXMEDETOMIDINE 200MCG/NS 50ML 50 ML IV ONE (23:16)
[2019-05-08] VITALS (23 sets, daily range): BP systolic 68–134; BP diastolic 49–95
[2019-05-08] MEDS ORDERED: PIPER-TAZ 3.375 GM 50 ML IV SCH
[2019-05-08] MEDS ORDERED: NOREPINEPHRINE 8 MG/D5W 250 ML 250 ML ONE (00:52)
--- NOTE | 2019-05-08 00:59 | Diagnostic Imaging Report ---
EXAMINATION: CHEST XRAY LINE PLACEMENT INDICATION: ^New central line COMPARISON: 05/07/2019 FINDINGS: AP view TUBES and LINES: Endotracheal tube in place with tip at the level of the clavicles. Nasogastric tube in place with tip extending beyond the inferior margin of the film. Left internal jugular central line in place with tip projecting over the junction of the expected junction of the brachiocephalic and SVC. LUNGS: Lungs are well inflated. Diffuse bilateral airspace opacities. PLEURA: No pneumothorax. Small bilateral pleural effusions. HEART AND MEDIASTINUM: The cardiomediastinal silhouette is enlarged. BONES AND SOFT TISSUES: No acute osseous lesion. Soft tissues are unremarkable. UPPER ABDOMEN: No free air under the diaphragm. IMPRESSION: Left internal jugular central line in place with tip projecting over the junction of the brachiocephalic and SVC or proximal SVC. No visible pneumothorax. Moderate to severe pulmonary edema, slightly worsened when compared to prior x-ray. Underlying pneumonia cannot be excluded. Signed by: Dr. Liban Najera MD on 05/08/2019 12:56 AM
[2019-05-08] MEDS ORDERED: [UNRECOGNIZED DRUG - OTHER] IV ONE (01:00)
[2019-05-08 01:14] LABS: BASOPHILS % 0.2 % (0.0-1.0); EOSINOPHILS % 0.1 % (0.0-6.0); HEMATOCRIT 35.6 % (38.2-49.6); LYMPHOCYTES # (AUTO) 0.7 (1.0-3.2); LYMPHOCYTES % 5.6 % (18.0-39.1); MEAN CORPUSCULAR HEMOGLOBIN 30.8 pg (28-32); MEAN CORPUSCULAR HGB CONC 33.7 g/dL (31-35); MEAN CORPUSCULAR VOLUME 91.3 fL (81-99); MONOCYTES # (AUTO) 0.4 (0.2-0.8); MONOCYTES % 2.9 % (4.4-11.3); NEUTROPHILS # (AUTO) 11.9 (2.1-6.9); NEUTROPHILS % 90.4 % (38.7-80.0); PLATELET COUNT 222 x10e3/uL (140-360); RED CELL DISTRIBUTION WIDTH 16.7 % (11.7-14.4)
[2019-05-08 01:20] LABS: ABG HCO3 24 mmol/L (23-28); ABG PCO2 43 mmHg (41-51); ABG PH 7.35 (7.31-7.41); ABG PO2 126 mmHg (80-105)
[2019-05-08] MEDS ORDERED: VANCOMYCIN 1GM/NS 250 ML 250 ML ONE (01:25)
[2019-05-08] MEDS ORDERED: SODIUM CHLORIDE 0.9% 100 ML ONE ×3 (01:26→05:14)
[2019-05-08] MEDS: SODIUM CHLORIDE 0.9% 250ML IRRIG IR SCH ×6 (01:30→20:33)
[2019-05-08 01:31] LABS: ALANINE AMINOTRANSFERASE 20 IU/L (0-55); ALBUMIN 2.1 g/dL (3.5-5.0); ALBUMIN/GLOBULIN RATIO 1.3 (0.8-2.0); ALKALINE PHOSPHATASE 38 IU/L (40-150); ANION GAP 8.4 mmol/L (8-16); BLOOD UREA NITROGEN 21 mg/dL (7-26); BUN/CREATININE RATIO 28 (6-25); CARBON DIOXIDE 25 mmol/L (22-29); CHLORIDE 104 mmol/L (98-107); CREATININE, SERUM 0.75 mg/dL (0.72-1.25); EST GLOMERULAR FILTRATION RATE > 60 ML/MIN (60-); GLUCOSE 189 mg/dL (74-118); PHOSPHORUS 3.1 MG/DL (2.3-4.7); POTASSIUM 4.4 mmol/L (3.5-5.1); SODIUM 133 mmol/L (136-145)
[2019-05-08 01:43] LABS: CALCIUM 6.9 mg/dL (8.4-10.2)
--- NOTE | 2019-05-08 01:44 | NUR ---
pulmonary date of encounter: 05/08/19 subjective : patient with dramatic hypotension x 2 episodes now, SBP to 40-50s. she responds well to fluids. abx expanded while critical propofol was removed and replaced by precedex more fluid boluses being given abg with pH 7.35, ventilator handling patient well pressors were initiated so far with levophed 18 mcg so far blood labs pending ROS: cant get, ams exam: vitals unstable patient was awake, now sedated imp/plan peritonitis perforated duodenal ulcer post operative state, s/p exploration and omental patch of ulcer shock, septic post operative respiratory insufficiency coagulopathy due to medications mostly as outpatient pulmonary fibrosis afib htn continue present management aggressive resuscitation + additional pressors add vasopressin if pressor dose increases high dose initial abx, expand for health care orgs given recent outside hospitalization recheck blood given coagulopathy check ekg, cardiac enzymes >80 min care and coordination, follow up for rapidly changing hemodynamics
[2019-05-08 01:46] LABS: MAGNESIUM 1.3 MG/DL (1.3-2.1)
[2019-05-08 01:59] LABS: CREATINE KINASE MB 1.1 ng/mL (0-5.0)
[2019-05-08] MEDS: VASOPRESSIN 100 UNIT in DEXTROSE 5% 100ML 100 ML IV SCH (02:00)
[2019-05-08] MEDS ORDERED: DEXTROSE 50% SYRINGE 50 ML IV PRN (02:00)
[2019-05-08] MEDS ORDERED: CALCIUM GLUCONATE 10% INJ 9.3 MEQ in SODIUM CHLORIDE 0.9% 100 ML 100 ML IV ONE (02:00)
--- NOTE | 2019-05-08 02:24 | Consultation ---
DATE OF CONSULTATION: 05/07/2019 REFERRING PHYSICIAN: 1. Dr. Acosta. 2. Tate Martinez MD. 3. Azeem Calloway MD. HISTORY OF PRESENT ILLNESS: The patient is a 68-year-old male, who presented to the emergency room with complaints of abdominal pain. Says it was sudden onset earlier today and was severe. He came to the emergency room evaluation and the CT of the abdomen and pelvis reveals free intraperitoneal air and fluid. PAST MEDICAL HISTORY: Significant for chronic obstructive pulmonary disease. He had been recently hospitalized for bilateral pneumonia. He has a history of atrial fibrillation. MEDICATIONS: At home were Symbicort, lisinopril, meloxicam, methimazole, metoprolol, and Xarelto, says last took of Xarelto couple of days ago. PAST SURGICAL HISTORY: He has not had previous abdominal surgery. ALLERGIES: HE HAS ALLERGY TO TETRACYCLINE. FAMILY HISTORY: Noncontributory. SOCIAL HISTORY: The patient is a former smoker, but quit and does not drink alcohol. REVIEW OF SYSTEMS: As I stated above. He denies any shortness of breath at this time or chest pain. He has not had any fever. PHYSICAL EXAMINATION: GENERAL: The patient is awake and alert. The patient is a well-developed male, in no distress. VITAL SIGNS: Reveal heart rate of around 100, the blood pressure is normal, respiration is 20, and O2 saturations 98% on oxygen. HEENT: Sclerae are not icteric. NECK: Supple. No masses or tenderness. LUNGS: Decreased breath sounds throughout at the bases. CARDIAC: An irregular rhythm with mild tachycardia. ABDOMEN: Distended. There is diffuse tenderness with signs of peritonitis. EXTREMITIES: Cool. There is no edema. NEUROLOGIC: Grossly intact. LAB TESTS: The white blood cell count is 16,000, hemoglobin 13.5, and hematocrit 40. Chemistries reveal BUN of 28, the creatinine is 1.1. Lipase and amylase are normal. ASSESSMENT: A 68-year-old male with perforated hollow viscus, most likely perforated ulcer. He will undergo surgery today to repair the perforation, possible bowel resection, possible colostomy. The surgery was explained to the patient including risks, benefits, and alternatives, he understands. He has had the opportunity to ask questions. Thank you for asking me to see Mr. Nieves. Ron W MD LEANDER Astorga/KAIT /[id number]
[2019-05-08] MEDS: SODIUM CHLORIDE 0.9% IV SCH ×2 (02:53→12:36)
[2019-05-08] MEDS: VANCOMYCIN HCL IV SCH ×2 (02:53→12:36)
[2019-05-08] MEDS: SODIUM CHLORIDE 0.9% 1000ML 1,000 ML IV SCH ×3 (02:55→20:33)
[2019-05-08] MEDS ORDERED: CALCIUM GLUCONATE 10% INJ 0.465 MEQ/ML VIAL ONE ×2 (02:57→03:03)
[2019-05-08] MEDS: NOREPINEPHRINE 8 MG/D5W 250 ML 250 ML IV PRN ×2 (03:04→05:55)
--- NOTE | 2019-05-08 03:19 | Operative Report ---
DATE OF PROCEDURE: 05/07/2019 SURGEON: Ron Astorga MD PREOPERATIVE DIAGNOSES: Perforated viscus and peritonitis. POSTOPERATIVE DIAGNOSES: Perforated viscus and peritonitis secondary to perforated duodenal ulcer. PROCEDURE: Exploratory laparotomy, closure of perforated duodenal ulcer with omental patch. BASS STRING WINDER: None. ANESTHESIA: General endotracheal. INDICATIONS AND FINDINGS: The patient is a 68-year-old male, presenting with complaints of severe abdominal pain started suddenly today. Workup revealed free intraperitoneal air and fluid. Approximately, 1500 mL of bilious fluid in the peritoneal cavity with a perforation seen in the duodenal bulb. TECHNIQUE: After adequate general endotracheal anesthesia, the patient in supine position, the abdomen was prepped and draped in sterile fashion with ChloraPrep solution. Through an upper midline incision, the peritoneal cavity was entered. There was a large amount of bilious fluid, which was drained. Sample taken for culture and sensitivity. Expiration revealed a perforation in the duodenal bulb. The edges were cleaned and the perforation was closed directly with interrupted sutures of 3-0 Vicryl. A flap of omentum was then developed from the transverse colon and the omentum sutured over the duodenal closure using 2-0 Vicryl. The main direct aspiration was unremarkable. The peritoneal cavity was irrigated with large volume of warm saline and inspected for hemostasis, which was seen to be adequate, irrigated with more saline, inspected for hemostasis once again, which was seen to be adequate. The midline fascia was then closed with running suture of #1 PDS. Subcutaneous tissue was irrigated with saline. Skin was closed with samy. Sterile dressing applied. The patient tolerated the procedure well. Estimated blood loss was 50 mL. There were no complications. All counts were correct and the patient was taken to the ICU in critical, but stable condition. Ron Astorga MD DWG/MODL /[id number]
[2019-05-08] MEDS ORDERED: FUROSEMIDE40 MG PO (04:04)
[2019-05-08] MEDS ORDERED: DIGOXIN125 MCG PO (04:05)
[2019-05-08] MEDS ORDERED: PREDNISONE10 MG PO (04:06)
[2019-05-08] MEDS ORDERED: FLOVENT DISKUS50 MCG NS (04:09)
[2019-05-08] MEDS ORDERED: DILTIAZEM 24HR120 M1 PO (04:10)
--- NOTE | 2019-05-08 04:10 | Consultation ---
DATE OF CONSULTATION: 05/07/2019 Pulmonary Medicine Consultation CHIEF COMPLAINT: Postoperative state. HISTORY OF PRESENT ILLNESS: Mr. Nieves is a pleasant 68-year-old gentleman with postoperative state. The patient came to hospital with agitation. The patient was seen at his primary care doctor's office today and was noted to have a lot of aggression. The patient intermittently had full orientation in the emergency room, but he had a lot of abdominal pain. The abdominal pain was difficult to quell. The patient had associated nausea and vomiting. The patient went for emergency abdominal imaging. Emergency abdominal imaging demonstrated a moderate amount of abdominal free air consistent with viscus perforation. The patient with white blood count of 16,000. Blood gas 7.46/44/51. INR 1.61. Creatinine 1.1. LFTs normal. Lipase normal. The patient emergently went to the operating room, where he underwent exploratory laparotomy with closure of duodenal perforated ulcer with omental patch. The patient brought back to the ICU in intubated state. The patient has some transient hypotension requiring fluid boluses. 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 He is awaiting outpatient bronchoscopy. He has been on outpatient prednisone 20 mg a day recently as he responded to steroids in the past. The patient additionally with history of atrial fibrillation and hypertension. MEDICATIONS: Medication list reviewed per the chart record. ALLERGIES: TETRACYCLINES. SOCIAL HISTORY: The patient was recently smoking and he is in the process of quitting. No heavy alcohol. No drugs. The patient with a brother, who is supportive. FAMILY HISTORY: Noncontributory. REVIEW OF SYSTEMS: Cannot get as he is intubated. PHYSICAL EXAMINATION: VITAL SIGNS: Afebrile, but vital signs are not stable yet as he is hypotensive. HEENT: Normocephalic, atraumatic. GENERAL: In bed, intubated by mouth. NECK: Supple. Throat midline. LUNGS: Bilateral air entry, few rhonchi. CARDIOVASCULAR: S1 and S2. No murmurs, rubs, or gallops. ABDOMEN: Soft nontender. EXTREMITIES: No clubbing, no cyanosis. There is no edema. INTEGUMENT: No rash. No purpura. LABORATORY DATA: Labs reviewed per the chart record. Chest radiography with pulmonary fibrosis, similar to recent radiograph. IMPRESSION AND PLAN: 1. Perforated duodenal ulcer. 2. Postoperative state, status post exploratory laparotomy and omental patch of duodenal ulcer. 3. Secondary peritonitis. 4. Postoperative hypotension. 5. Postoperative respiratory insufficiency, intubated. 6. Known usual interstitial pneumonitis, suggested hypersensitivity pneumonia versus idiopathic pulmonary fibrosis, although workup is still not completed. 7. History of asbestos exposure and multiple occupational exposures in the past. 8. History of atrial fibrillation, on anticoagulation. 9. History of hypertension. 10. History of chronic prednisone use, immunosuppressed state. Continue antibiotics for now. Give more fluid. Maintain intubated for now until hemodynamics are stable. When he is stabilized and wakes up, we will try to extubate him. The patient will need lung protective ventilation. We will modify the sedation. Propofol given to lower the blood pressure. Followup kidney output very closely. Followup for bleeding given his history of blood thinners as well as to give GI prophylaxis as well. Greater than 30 minutes in direct care on this date. Numerous evaluations. Thank you very much for this consult. Please call for questions. MD GEREMIAS Kent/KAIT /[id number]
[2019-05-08] MEDS ORDERED: Nasal Spray (04:12)
--- NOTE | 2019-05-08 04:44 | Operative Report ---
DATE OF PROCEDURE: 05/07/2019 SURGEON: Azeem Calloway MD PROCEDURE: Central venous catheter placement, ultrasound guidance. INDICATION: Emergency with hypotension, systolic pressure 54. ANESTHESIA: Lidocaine 1%, 2.5 mL. OPERATIVE FINDINGS: After sterile prep and drape, lidocaine was administered into the area for puncture. The patient with ultrasound used to find the left internal jugular vein. Thereafter, the central line was inserted via reverse Seldinger technique into the left IJ area. The patient was noted dry and was placed in Trendelenburg, had a few attempts before finally cannulating right inside the vein. Assessment of no hematoma after the central line was placed and the line was sutured in place. The distal port was not working very well, although the 2 other ports were working. FINDINGS: Successful left IJ placement. COMPLICATIONS: None. ESTIMATED BLOOD LOSS: 4 mL. MD GEREMIAS Kent/MODL /[id number]
[2019-05-08 04:50] LABS: BASOPHILS % 0.2 % (0.0-1.0); EOSINOPHILS % 0.1 % (0.0-6.0); HEMATOCRIT 39.4 % (38.2-49.6); HEMOGLOBIN 13.2 g/dL (14.0-18.0); LYMPHOCYTES # (AUTO) 1.3 (1.0-3.2); LYMPHOCYTES % 5.8 % (18.0-39.1); MEAN CORPUSCULAR HEMOGLOBIN 30.6 pg (28-32); MEAN CORPUSCULAR HGB CONC 33.5 g/dL (31-35); MEAN CORPUSCULAR VOLUME 91.2 fL (81-99); MONOCYTES # (AUTO) 0.7 (0.2-0.8); MONOCYTES % 3.3 % (4.4-11.3); NEUTROPHILS # (AUTO) 19.7 (2.1-6.9); NEUTROPHILS % 89.7 % (38.7-80.0); PLATELET COUNT 283 x10e3/uL (140-360); RED BLOOD COUNT 4.32 x10e6/uL (4.3-5.7)
[2019-05-08 05:01] LABS: INR 1.34; PROTHROMBIN TIME 17.2 seconds (11.9-14.5)
[2019-05-08 05:02] LABS: PARTIAL THROMBOPLASTIN TIME 31.9 seconds (23.8-35.5)
[2019-05-08] MEDS ORDERED: DEXMEDETOMIDINE 200MCG/NS 50ML 50 ML IV ONE ×4 (05:07→16:23)
[2019-05-08 05:11] LABS: ALANINE AMINOTRANSFERASE 22 IU/L (0-55); ALBUMIN 2.4 g/dL (3.5-5.0); ALBUMIN/GLOBULIN RATIO 1.3 (0.8-2.0); ALKALINE PHOSPHATASE 40 IU/L (40-150); ANION GAP 9.7 mmol/L (8-16); BLOOD UREA NITROGEN 21 mg/dL (7-26); BUN/CREATININE RATIO 26 (6-25); CALCIUM 7.6 mg/dL (8.4-10.2); CARBON DIOXIDE 25 mmol/L (22-29); CHLORIDE 102 mmol/L (98-107); EST GLOMERULAR FILTRATION RATE > 60 ML/MIN (60-); GLUCOSE 239 mg/dL (74-118); POTASSIUM 4.7 mmol/L (3.5-5.1); SODIUM 132 mmol/L (136-145)
[2019-05-08] MEDS ORDERED: MEROPENEM 1 GM VIAL ONE (05:14)
[2019-05-08 05:28] LABS: CREATINE KINASE MB 1.1 ng/mL (0-5.0)
[2019-05-08] MEDS: MEROPENEM 1GRAM 1 GM in SODIUM CHLORIDE 0.9% 100 ML 100 ML IV SCH ×3 (05:38→22:19)
[2019-05-08] MEDS: INSULIN LISPRO 100 UNIT/1 ML 3ML VIAL SQ SCH ×3 (06:02→17:06)
--- NOTE | 2019-05-08 06:49 | Diagnostic Imaging Report ---
EXAMINATION: CHEST SINGLE (PORTABLE) INDICATION: ^chf ^[id number] ^[id number] COMPARISON: 05/08/2019 FINDINGS: AP view TUBES and LINES: Stable endotracheal tube, left IJ central line, and nasogastric tube. LUNGS: Diffuse bilateral airspace opacities and pulmonary vascular congestion. Biapical pleural thickening. PLEURA: Bilateral pleural effusions. No visible pneumothorax. HEART AND MEDIASTINUM: The cardiomediastinal silhouette is enlarged and obscured by airspace opacities. BONES AND SOFT TISSUES: No acute osseous lesion. Soft tissues are unremarkable. UPPER ABDOMEN: No free air under the diaphragm. IMPRESSION: Not significantly changed moderate to severe pulmonary edema and bilateral pleural effusions. Underlying pneumonia cannot be excluded. Signed by: Dr. Liban Najera MD on 05/08/2019 6:45 AM
[2019-05-08] MEDS ORDERED: SODIUM CHLORIDE 0.9% 1000ML 1,000 ML IV ONE (07:45)
[2019-05-08] MEDS: PANTOPRAZOLE 40 MG 10ML VIAL IV SCH (08:11)
--- NOTE | 2019-05-08 10:58 | NUR ---
CONSULTS CALLED TO AND .
[2019-05-08 14:38] LABS: CREATINE KINASE MB 0.9 ng/mL (0-5.0)
[2019-05-08] MEDS: IPRATROPIUM BROMIDE 0.02% 2.5 ML NEB NEB PRN (15:00)
--- NOTE | 2019-05-08 15:42 | NUR ---
Nutrition Intervention Note RD Recommendation(s) for Physician: Initiate a PO diet when medically feasible post intubation Plan of Care: RD following, monitoring for tolerance and adequacy Nutrition reason for involvement: Nutrition Risk Trigger - [facility] RD Assessment Initial encounter with patient. Pt was alert and writing down that he wanted to eat. Pt was orally intubated with an NGT to suction. NS at 125ml/hr. Pt corrected the RD using fingers to indicate that he is 74" tall. Ate well [employer] and denied having any difficulty chewing or swallowing or any known food allergies Principal Problems/Diagnoses: bowel perforation PMH: HTN, COPD, PUD, atrial fibrillation pulmonary fibrosis, Graves GI: Distended NGT to suction Skin: surgical incision Labs: (05/08/2019) lab results reviewed Meds: (05/08/19) MAR reviewed Ht:74" Wt:210lbs BMI:27kg/m2 IBW:190lbs Malnutrition Evaluation (05/08/19) The patient does not meet criteria for a specified degree of malnutrition at this time. Will re-evaluate at follow-up as appropriate. Nutrition Prescription (Diet Order): NPO Estimated Nutritional Needs: 1909 calories/day (20 kcal/kg/ CBW) 95g protein/day (1 g pro/kg/ CBW) Diet Adequacy: Not meeting calorie needs, Not meeting protein needs Diet Education Needs Assessment: Diet education not indicated. Nutrition Care Level: Moderate Nutrition Diagnosis: Altered GI function related to duodenal ulcer perforation as evidenced by an exploratory laparotomy Goal: Patient will meet 75-100% of estimated needs by follow up Progress:Not Progressing Interventions: Recommend initiating a PO diet when medically feasible post intubation. Monitoring/Evaluation: Total energy intake, Total protein intake, IVF, Prescription medication, Weight change Signed: Bertram Ocampo RD, LD, [facility]
[2019-05-08] MEDS: DEXMEDETOMIDINE 200MCG/NS 50ML 50 ML IV SCH (17:05)
--- NOTE | 2019-05-08 18:58 | Consultation ---
DATE OF CONSULTATION: 05/08/2019 Cardiology Consultation REASON FOR CONSULTATION: Emergent consult for atrial fibrillation and bradycardia in a critically ill patient. HISTORY OF PRESENT ILLNESS: Mr. Nieves is a 68-year-old gentleman, who is currently intubated and sedated on the vent, on pressors, who is postop from an exploratory laparotomy for perforated viscus. We are unable to obtain any history due to his medical condition, however, lot of his history is provided by chart review. At baseline, the patient has a history of hypertension, COPD, active smoker, Graves disease, prior history of atrial fibrillation in the past on rate control therapy at home with digoxin and anticoagulation therapy with Xarelto. He presented to this institution last night with severe sudden onset of abdominal pain and came into the emergency room for evaluation. He had a CT abdomen and pelvis that was done revealing free intraperitoneal air and fluid. He was taken emergently to the OR, where they performed an exploratory laparotomy and revealed 1500 mL of bilious fluid in the peritoneal cavity with a perforation seen in the duodenal bulb. He was washed out and drained and was directly repaired with interrupted sutures by Dr. Astorga and had a rather excellent operative course with minimal blood loss and no complications. He was then taken to the ICU for further care and management. In the ICU, he obviously was in shock physiology, was on high-dose pressors and currently he is being weaned off, and currently he is on Levophed at 11 mcg/kg per minute. They stopped the sedation on account of trying to perhaps do a breathing trial this morning and they have him on Precedex drip. While asleep, the patient is in atrial fibrillation with relatively slow ventricular response with heart rates in the 50s to 60s and currently blood pressure is 106/59 with a MAP of 72. He is unable to provide any history due to his intubated state. PAST MEDICAL HISTORY: 1. Hypertension, essential. 2. COPD, smoker. 3. Graves disease. 4. Prior history of atrial fibrillation, on anticoagulant and rate control therapy. 5. DJD. 6. Prior history of pneumonia. PAST SURGICAL HISTORY: 1. History of cataract surgery in 2016. 2. Exploratory laparotomy as noted above. FAMILY HISTORY: Father . Mother is alive. There is family history of hypertension, but there is no premature family history of coronary artery disease. SOCIAL HISTORY: He is an occasional drinker. Does have a history of smoking up to a pack per day. No known drug use. ALLERGIES: TETRACYCLINES. HOME MEDICATIONS: Includes: 1. Symbicort 160/4.5 mg inhaled b.i.d. 2. Digoxin 0.125 mg daily. 3. Cardizem 120 mg daily. 4. Flovent 50 mcg nasal spray daily. 5. Lasix 40 mg daily. 6. Lisinopril 30 mg daily. 7. Meloxicam 15 mg p.r.n. 8. Methimazole 10 mg t.i.d. 9. Metoprolol 50 mg b.i.d. 10. Prednisone tablet daily. 11. Xarelto 20 mg daily. REVIEW OF SYSTEMS: Unable to be obtained secondary to intubated state. PHYSICAL EXAMINATION: VITAL SIGNS: Height of 76 inches, weight of 210 pounds, BMI is 25.6, temperature of 98.1, pulse of 60 right now, respiratory rate of 20, O2 saturation 99% on 40% FiO2. Blood pressure is 109/59, MAP of 73. GENERAL: This is an acutely ill gentleman, who is lying in bed, intubated and sedated. HEENT: Normocephalic, atraumatic. Pupils equal, round, and reactive to light. Oropharynx with an endotracheal tube. There is an NG tube through the right nostril to low intermittent suction. NECK: No elevation of jugular venous pulsation. Faint left carotid bruit. CARDIOVASCULAR: Irregularly irregular rate and rhythm. Bradycardic. Normal S1, S2. Soft 1/6 systolic murmur at the left lower sternal border. LUNGS: With moderate decreased air flow throughout lung kelsey compatible with COPD type changes. ABDOMEN: Absent bowel sounds. There is a midline exploratory laparotomy scar that is clean, dry, and intact. There is no rebound or guarding. BACK: No costovertebral angle tenderness. : Positive for Stephenson. EXTREMITIES: Cool with 1+ femoral pulses, 1+ radial pulse and absent pedal pulses. NEUROLOGIC: He is sedated currently. LABORATORY DATA: White count of 22, hemoglobin 13.2, hematocrit 39.4, platelets of 283. Sodium 132, potassium 4.7, chloride 102, bicarb 25, BUN 21, creatinine 0.8, glucose of 239, calcium of 7.6, magnesium of 1.3, AST 14, ALT 22, alkaline phosphatase 40, total protein of 4.3, albumin of 2.4. Troponin is 0.011. INR is 1.34. UA is unremarkable. Chest x-ray this morning shows [id number] pulmonary edema and bilateral pleural effusions. Abdomen and pelvis CT from admission showing free fluid as well as pneumoperitoneum. DIAGNOSES: 1. Septic shock secondary to perforated viscus, status post emergent surgery and heroic repair with Dr. Astorga. 2. Atrial fibrillation with relatively slow ventricular response may be exacerbated due to Precedex use. 3. History of hyperthyroidism, on methimazole therapy. 4. Pulmonary edema pattern noted on chest x-ray: Questionable acute respiratory distress syndrome. 5. Chronic obstructive pulmonary disease. He is a smoker. PLAN/RECOMMENDATIONS: 1. From a cardiovascular standpoint, we will avoid all of his AV bernie blocking agents. I suspect perhaps an elevated vagal tone in light of his GI issue, which may be contributing to his relative Bob arrhythmias, but based on his medication use in the past, suspect he has had issues with RVR in the past. Precedex is definitely not helping, but his relative bradycardia is not immediately life threatening. 2. We will recommend weaning pressors as tolerated. 3. Obviously, we cannot afford to restart him on a systemic anticoagulant therapy as he is recently postop now, not even postop day #1. 4. We will check echo to evaluate his left ventricular function. 5. Empiric antibiotics per primary team and critical care team and currently receiving meropenem and vancomycin. 6. We will continue to follow this patient. Thank you for this referral. MD FOUZIA Cid/KAIT /[id number]
--- NOTE | 2019-05-08 23:34 | Consultation ---
DATE OF CONSULTATION: 05/08/2019 REASON FOR CONSULTATION: Sepsis and peritonitis. HISTORY OF PRESENT ILLNESS: This patient is very pleasant 68-year-old white male, comes in with abdominal pain, found to have ruptured viscus, underwent surgery yesterday. He is currently on the ventilator, still on vasopressors. I am asked to see him. The patient comes in with abdominal pain started suddenly, came to the Emergency Room, and was found to have ruptured jejunum and underwent surgery. The patient does have history of COPD. He was recently with pneumonia, atrial fibrillation. He is currently on a ventilator, alert and follows command, seems to be really comfortable. His only complaint is he wants the ET tube out. PAST MEDICAL HISTORY: As above. PAST SURGICAL HISTORY: As above. ALLERGIES: NKA. SOCIAL HISTORY: He used to smoke, but quit. REVIEW OF SYSTEMS: HEENT: Negative. PULMONARY: Negative. CARDIAC: Negative. He looks comfortable now. LABORATORY DATA: Blood cultures are negative 24 hours. Intraoperative culture is still pending. White count on admission was 16.7 and today is 21, hemoglobin 13, hematocrit 39, Sodium 132, potassium 4.7, creatinine 0.8. PHYSICAL EXAMINATION: GENERAL: He is currently alert and oriented, does not seem to be in acute distress. He is currently on meropenem 1 g q.8, norepinephrine, and vancomycin 1 g q.12. He is currently alert, comfortable. VITAL SIGNS: Stable, currently afebrile. HEENT: Not icteric. NECK: Supple. CHEST: Clear. HEART: S1, S2. No S3, S4, or murmur. ABDOMEN: Soft. Bowel sounds hypoactive. EXTREMITIES: No edema. SKIN: No rash. IMPRESSION: Peritonitis, status post surgery, exploratory laparotomy. Continue with the current choice of antibiotics. present on admission, clinically looks good. Continue to wean down vasopressors is worse, but clinically stable, so we will await and recheck CBC. History of chronic obstructive pulmonary disease and history of smoking, stable. We will follow. MD ISIDORO Nichols/KAIT /[id number]
[2019-05-09] VITALS (24 sets, daily range): BP systolic 71–147; BP diastolic 53–88
[2019-05-09] MEDS: SODIUM CHLORIDE 0.9% 250ML IRRIG IR SCH ×6 (00:55→22:09)
[2019-05-09] MEDS: DEXMEDETOMIDINE 200MCG/NS 50ML 50 ML IV SCH ×3 (00:56→07:11)
[2019-05-09] MEDS: VASOPRESSIN 100 UNIT in DEXTROSE 5% 100ML 100 ML IV SCH (02:00)
[2019-05-09] MEDS: VANCOMYCIN 1GM/NS 250 ML 250 ML IV SCH ×2 (02:09→12:56)
[2019-05-09 04:33] LABS: BASOPHILS % 0.1 % (0.0-1.0); EOSINOPHILS # (AUTO) 0.1 (0.0-0.4); EOSINOPHILS % 0.3 % (0.0-6.0); HEMATOCRIT 34.3 % (38.2-49.6); HEMOGLOBIN 11.6 g/dL (14.0-18.0); LYMPHOCYTES # (AUTO) 1.7 (1.0-3.2); LYMPHOCYTES % 9.9 % (18.0-39.1); MEAN CORPUSCULAR HEMOGLOBIN 30.8 pg (28-32); MEAN CORPUSCULAR HGB CONC 33.8 g/dL (31-35); MONOCYTES # (AUTO) 0.8 (0.2-0.8); MONOCYTES % 4.3 % (4.4-11.3); NEUTROPHILS # (AUTO) 14.8 (2.1-6.9); NEUTROPHILS % 84.5 % (38.7-80.0); PLATELET COUNT 192 x10e3/uL (140-360); RED BLOOD COUNT 3.77 x10e6/uL (4.3-5.7); RED CELL DISTRIBUTION WIDTH 17.1 % (11.7-14.4)
[2019-05-09 04:56] LABS: ALANINE AMINOTRANSFERASE 19 IU/L (0-55); ALBUMIN/GLOBULIN RATIO 0.9 (0.8-2.0); ALKALINE PHOSPHATASE 43 IU/L (40-150); ANION GAP 9.1 mmol/L (8-16); BLOOD UREA NITROGEN 14 mg/dL (7-26); BUN/CREATININE RATIO 20 (6-25); CALCIUM 7.9 mg/dL (8.4-10.2); CARBON DIOXIDE 25 mmol/L (22-29); CHLORIDE 102 mmol/L (98-107); CREATININE, SERUM 0.69 mg/dL (0.72-1.25); EST GLOMERULAR FILTRATION RATE > 60 ML/MIN (60-); GLUCOSE 113 mg/dL (74-118); POTASSIUM 4.1 mmol/L (3.5-5.1); SODIUM 132 mmol/L (136-145)
[2019-05-09] MEDS: NOREPINEPHRINE 8 MG/D5W 250 ML 250 ML IV PRN (04:58)
[2019-05-09 05:15] LABS: THYROID STIMULATING HORMONE 11.752 uIU/mL (0.350-4.940)
[2019-05-09] MEDS: INSULIN LISPRO 100 UNIT/1 ML 3ML VIAL SQ SCH ×5 (05:19→23:43)
[2019-05-09] MEDS: MEROPENEM 1GRAM 1 GM in SODIUM CHLORIDE 0.9% 100 ML 100 ML IV SCH (05:55)
--- NOTE | 2019-05-09 07:03 | Diagnostic Imaging Report ---
EXAMINATION: CHEST SINGLE (PORTABLE) INDICATION: ^chf ^[id number] ^[id number] COMPARISON: 05/08/2019 FINDINGS: AP view TUBES and LINES: Stable endotracheal and nasogastric tubes. Stable left IJ central line. LUNGS: Limited by low lung volumes and body habitus. Severe pulmonary edema. PLEURA: Bilateral pleural effusions. No visible pneumothorax. HEART AND MEDIASTINUM: The cardiomediastinal silhouette is enlarged. BONES AND SOFT TISSUES: No acute osseous lesion. Soft tissues are unremarkable. UPPER ABDOMEN: No free air under the diaphragm. IMPRESSION: Limited study as above. Severe pulmonary edema, enlarged cardiomediastinal silhouette, and bilateral pleural effusions. Underlying pneumonia cannot be excluded. Signed by: Dr. Liban Najera MD on 05/09/2019 7:00 AM
[2019-05-09] MEDS: SODIUM CHLORIDE 0.9% 1000ML 1,000 ML IV SCH ×3 (07:11→22:09)
[2019-05-09] MEDS: IPRATROPIUM BROMIDE 0.02% 2.5 ML NEB NEB PRN ×3 (07:15→19:10)
[2019-05-09] MEDS: PANTOPRAZOLE 40 MG 10ML VIAL IV SCH (08:12)
[2019-05-09] MEDS: MEROPENEM 1GM 100 ML IV SCH ×2 (14:02→22:09)
[2019-05-09] MEDS ORDERED: DIGOXIN INJ 0.25 MG/ML 2 ML AMP IV NR (14:30)
--- NOTE | 2019-05-09 14:31 | NUR ---
PULMONARY MEDICINE date of encounter: 05/09/19 SUBJECTIVE: patient seen and examined. NS at 125 cc/hr IVF. Levophed weaned off at 9 am today. patient bp still mostly low normal, although ?mildly higher now / transient ?. UOP ~ 51 cc/hr so far. precedex sedation, but he is wide awake & writing while off precedex. patient with CXR with additional overload. ROS: cant get, intubated OBJECTIVE: vitals more stable, reviewed per record. GEN NAD, intubated ENT: NCAT, anicteric neck: supple, midline chest: bilateral a/e, ~limited CV: RR , no m/r Abd: post op, not distended ext: no c/c/e int: no rash, no purpura IMP/PLAN secondary peritonitis perforated duodenal ulcer post operative state, s/p exploration and omental patch of ulcer shock, septic. resolving post operative respiratory insufficiency, intubated pulmonary fibrosis, HSP vs UIP ?IPF vs other (was under workup prior to event) afib htn smoker, quitting multiple occupational exposures, including to asbestos continue present management follow hemodynamics decrease IVF as BP allows start diuretics if BP allows. consider extubation when fluid balance/hemodynamics is tolerating diuretics --no early chest US as effusion fluid likely to resolve as he gets better continue abx, needs vancomycin trough soon local wound care
[2019-05-09] MEDS ORDERED: FUROSEMIDE INJ 10 MG/ML 4 ML VIAL IV NR (14:45)
[2019-05-10] VITALS (24 sets, daily range): BP systolic 83–157; BP diastolic 50–85
[2019-05-10] MEDS: SODIUM CHLORIDE 0.9% 250ML IRRIG IR SCH ×3 (00:31→08:00)
[2019-05-10] MEDS: VANCOMYCIN 1GM/NS 250 ML 250 ML IV SCH ×2 (00:32→12:44)
[2019-05-10] MEDS: VASOPRESSIN 100 UNIT in DEXTROSE 5% 100ML 100 ML IV SCH (02:00)
[2019-05-10] MEDS: DEXMEDETOMIDINE 200MCG/NS 50ML 50 ML IV SCH (03:56)
[2019-05-10] MEDS: MEROPENEM 1GM 100 ML IV SCH ×3 (05:22→21:25)
[2019-05-10 05:39] LABS: BASOPHILS % 0.1 % (0.0-1.0); EOSINOPHILS % 0.3 % (0.0-6.0); HEMATOCRIT 34.5 % (38.2-49.6); HEMOGLOBIN 11.1 g/dL (14.0-18.0); LYMPHOCYTES # (AUTO) 1.4 (1.0-3.2); LYMPHOCYTES % 9.7 % (18.0-39.1); MEAN CORPUSCULAR HEMOGLOBIN 30.2 pg (28-32); MEAN CORPUSCULAR HGB CONC 32.2 g/dL (31-35); MEAN CORPUSCULAR VOLUME 93.8 fL (81-99); MONOCYTES # (AUTO) 0.6 (0.2-0.8); MONOCYTES % 4.1 % (4.4-11.3); NEUTROPHILS # (AUTO) 11.8 (2.1-6.9); NEUTROPHILS % 84.8 % (38.7-80.0); PLATELET COUNT 160 x10e3/uL (140-360); RED BLOOD COUNT 3.68 x10e6/uL (4.3-5.7); RED CELL DISTRIBUTION WIDTH 17.2 % (11.7-14.4)
[2019-05-10] MEDS: INSULIN LISPRO 100 UNIT/1 ML 3ML VIAL SQ SCH ×4 (06:00→23:24)
--- NOTE | 2019-05-10 06:00 | NUR ---
Both L arm IV's removed because phlebitis/occlusion. Were not originally added.
[2019-05-10 06:05] LABS: ALANINE AMINOTRANSFERASE 20 IU/L (0-55); ALBUMIN 1.9 g/dL (3.5-5.0); ALBUMIN/GLOBULIN RATIO 0.7 (0.8-2.0); ALKALINE PHOSPHATASE 50 IU/L (40-150); ANION GAP 11.2 mmol/L (8-16); BLOOD UREA NITROGEN 12 mg/dL (7-26); BUN/CREATININE RATIO 17 (6-25); CALCIUM 8.3 mg/dL (8.4-10.2); CARBON DIOXIDE 26 mmol/L (22-29); CHLORIDE 99 mmol/L (98-107); CREATININE, SERUM 0.71 mg/dL (0.72-1.25); EST GLOMERULAR FILTRATION RATE > 60 ML/MIN (60-); MAGNESIUM 1.3 MG/DL (1.3-2.1); PHOSPHORUS 2.6 MG/DL (2.3-4.7); POTASSIUM 3.2 mmol/L (3.5-5.1); SODIUM 133 mmol/L (136-145)
[2019-05-10 06:16] LABS: GLUCOSE 58 mg/dL (74-118)
--- NOTE | 2019-05-10 06:55 | Diagnostic Imaging Report ---
EXAMINATION: CHEST SINGLE (PORTABLE) INDICATION: ^chf ^[id number] ^[id number] COMPARISON: 05/09/2019 FINDINGS: AP view TUBES and LINES: Stable endotracheal and nasogastric tubes. Stable left IJ central line. LUNGS: Lungs are well inflated. Moderate to severe pulmonary edema. PLEURA: No pneumothorax. Bilateral small pleural effusions. HEART AND MEDIASTINUM: The cardiomediastinal silhouette is unremarkable. BONES AND SOFT TISSUES: No acute osseous lesion. Soft tissues are unremarkable. UPPER ABDOMEN: No free air under the diaphragm. IMPRESSION: Moderate to severe pulmonary edema and bilateral pleural effusions, slightly improved when compared to prior x-ray. Signed by: Dr. Liban Najera MD on 05/10/2019 6:51 AM
[2019-05-10] MEDS ORDERED: POTASSIUM CHLORIDE 20MEQ/15ML UDC NG SCH (07:45)
[2019-05-10] MEDS: FUROSEMIDE INJ 10 MG/ML 4 ML VIAL IV SCH (08:00)
[2019-05-10] MEDS: PANTOPRAZOLE 40 MG 10ML VIAL IV SCH (08:00)
--- NOTE | 2019-05-10 11:33 | NUR ---
PULMONARY MEDICINE date of encounter: 05/10/19 SUBJECTIVE: patient seen and examined. NS at 75 cc/hr IVF. Patient with 4+ liters UOP yesterday after lasix initiation. Today already with patient bp still mostly low normal, although ?mildly higher now / transient ?. UOP 450 cc/hr so far this morning. k repleted mildly. patient remained intubated. on precedex. later extubated with RSBI 32, NIF -45. CXR with improving fluid status. ROS: cant get, intubated OBJECTIVE: vitals more stable, reviewed per record. GEN NAD, intubated/extubated ENT: NCAT, anicteric neck: supple, midline chest: bilateral a/e, rare rhonchi CV: RR , no m/r Abd: post op, not distended, mostly nontender ext: no c/c/e int: no rash, no purpura IMP/PLAN secondary peritonitis perforated duodenal ulcer post operative state, s/p exploration and omental patch of ulcer post operative respiratory insufficiency, intubated/extubated pulmonary fibrosis, HSP vs IPF vs other (was under workup prior to event) afib htn smoker, quitting multiple occupational exposures, including to asbestos continue present management follow hemodynamics continue decreased IVF Diuretics, IV K repletion extubation today d/c ventilator support continue abx, include vancomycin monitoring per ID local wound care GI use/diet per surgery. LIWS for now. DVT ppx
[2019-05-10] MEDS ORDERED: MAGNESIUM SULF 1GRAM/DEXTROSE 100 ML IV ONE (12:00)
[2019-05-10] MEDS ORDERED: POTASSIUM CHLORIDE 20MEQ/100ML 200 ML IV ONE (12:00)
[2019-05-10] MEDS: SODIUM CHLORIDE 0.9% 1000ML 1,000 ML IV SCH (12:44)
[2019-05-10] MEDS: METOPROLOL TARTRATE INJ 1 MG/ML VIAL IV SCH ×3 (15:36→22:00)
[2019-05-10 18:13] LABS: ABG HCO3 27 mmol/L (23-28); ABG PCO2 44 mmHg (41-51); ABG PH 7.39 (7.31-7.41); ABG PO2 84 mmHg (80-105)
[2019-05-11] VITALS (17 sets, daily range): BP systolic 93–141; BP diastolic 61–87
[2019-05-11] MEDS: METOPROLOL TARTRATE INJ 1 MG/ML VIAL IV SCH ×6 (02:00→22:00)
[2019-05-11] MEDS: VANCOMYCIN 1GM/NS 250 ML 250 ML IV SCH ×2 (02:06→12:13)
[2019-05-11] MEDS: SODIUM CHLORIDE 0.9% 1000ML 1,000 ML IV SCH ×3 (02:06→23:45)
[2019-05-11 05:00] LABS: BASOPHILS % 0.3 % (0.0-1.0); EOSINOPHILS # (AUTO) 0.1 (0.0-0.4); EOSINOPHILS % 0.5 % (0.0-6.0); HEMATOCRIT 31.8 % (38.2-49.6); HEMOGLOBIN 10.7 g/dL (14.0-18.0); LYMPHOCYTES # (AUTO) 1.1 (1.0-3.2); LYMPHOCYTES % 9.1 % (18.0-39.1); MEAN CORPUSCULAR HEMOGLOBIN 30.9 pg (28-32); MEAN CORPUSCULAR HGB CONC 33.6 g/dL (31-35); MEAN CORPUSCULAR VOLUME 91.9 fL (81-99); MONOCYTES # (AUTO) 0.7 (0.2-0.8); MONOCYTES % 5.7 % (4.4-11.3); NEUTROPHILS # (AUTO) 9.7 (2.1-6.9); NEUTROPHILS % 83.4 % (38.7-80.0); PLATELET COUNT 149 x10e3/uL (140-360); RED BLOOD COUNT 3.46 x10e6/uL (4.3-5.7)
[2019-05-11 05:27] LABS: ANION GAP 12.2 mmol/L (8-16); BLOOD UREA NITROGEN 10 mg/dL (7-26); BUN/CREATININE RATIO 15 (6-25); CALCIUM 8.3 mg/dL (8.4-10.2); CARBON DIOXIDE 28 mmol/L (22-29); CHLORIDE 96 mmol/L (98-107); CREATININE, SERUM 0.67 mg/dL (0.72-1.25); EST GLOMERULAR FILTRATION RATE > 60 ML/MIN (60-); GLUCOSE 65 mg/dL (74-118); MAGNESIUM 1.5 MG/DL (1.3-2.1); POTASSIUM 3.2 mmol/L (3.5-5.1); SODIUM 133 mmol/L (136-145)
[2019-05-11] MEDS: MEROPENEM 1GM 100 ML IV SCH ×3 (05:31→22:30)
[2019-05-11] MEDS: INSULIN LISPRO 100 UNIT/1 ML 3ML VIAL SQ SCH ×3 (05:52→18:13)
--- NOTE | 2019-05-11 06:12 | Diagnostic Imaging Report ---
EXAMINATION: CHEST SINGLE (PORTABLE) INDICATION: CHF. COMPARISON: 05/10/2019 FINDINGS: AP view TUBES and LINES: Stable endotracheal and nasogastric tubes. Stable left IJ central line. LUNGS: Lungs are not well inflated. Diffuse coarsening of the pulmonary interstitium and patchy airspace disease bilaterally, not significantly changed. PLEURA: No pneumothorax. Bilateral small pleural effusions. HEART AND MEDIASTINUM: The cardiomediastinal silhouette is unremarkable. BONES AND SOFT TISSUES: No acute osseous lesion. Soft tissues are unremarkable. UPPER ABDOMEN: No free air under the diaphragm. IMPRESSION: No significant interval change in bilateral interstitial edema. Signed by: Dr. Moe Zeng M.D. on 05/11/2019 6:08 AM
[2019-05-11] MEDS: IPRATROPIUM BROMIDE 0.02% 2.5 ML NEB NEB PRN (07:40)
[2019-05-11] MEDS ORDERED: POTASSIUM CHLORIDE 20MEQ/100ML 300 ML IV ONE (07:45)
[2019-05-11] MEDS: FUROSEMIDE INJ 10 MG/ML 4 ML VIAL IV SCH (08:23)
[2019-05-11] MEDS: PANTOPRAZOLE 40 MG 10ML VIAL IV SCH (08:23)
[2019-05-11] MEDS: DILTIAZEM HCL ER 120 MG CAP PO SCH (11:59)
--- NOTE | 2019-05-11 13:16 | NUR ---
PULMONARY MEDICINE date of encounter: 05/11/19 SUBJECTIVE: patient seen and examined. NS at 75 cc/hr IVF. patient with good UOP. NGT removed. (+) flatus, (+) BM. started clears diet ROS: no headaches, no double vision OBJECTIVE: vitals more stable, reviewed per record. GEN NAD, calm ENT: NCAT, anicteric neck: supple, midline chest: bilateral a/e, rare rhonchi CV: RR , no m/r Abd: post op, mostly nontender ext: no c/c/e int: no rash, no purpura IMP/PLAN secondary peritonitis perforated duodenal ulcer post operative state, s/p exploration and omental patch of ulcer post operative respiratory insufficiency, intubated/extubated pulmonary fibrosis, HSP vs IPF vs other (was under workup prior to event) afib htn smoker, quitting multiple occupational exposures, including to asbestos wean off IVF started PO diet, follow intake Diuretics, IV K repletion continue abx, include vancomycin monitoring per ID local wound care NGT d/c banerjee dc CVC dc soon, assess vancomycin need DVT ppx
--- NOTE | 2019-05-11 15:00 | NUR ---
PT TO [facility] FLOOR FROM ICU. PT'S VITALS WNL. PT DENIES NEEDS AT THIS TIME.
[2019-05-11] MEDS: METHIMAZOLE 5 MG TAB PO SCH ×3 (15:45→21:24)
[2019-05-11] MEDS: LISINOPRIL 10 MG TAB PO SCH (21:24)
[2019-05-12] VITALS (7 sets, daily range): BP systolic 116–139; BP diastolic 60–87
[2019-05-12] MEDS: VANCOMYCIN 1GM/NS 250 ML 250 ML IV SCH ×2 (01:00→13:14)
--- NOTE | 2019-05-12 01:47 | NUR ---
Patient received sitting up in bed. AAO x 3. Patient had no complaints of pain. Respirations even and non-labored on 3L NC. Fall precautions implemented. Patient instructed to call for assistance when needed. Call light within reach.
[2019-05-12] MEDS: METOPROLOL TARTRATE INJ 1 MG/ML VIAL IV SCH ×6 (02:00→21:37)
[2019-05-12] MEDS: INSULIN LISPRO 100 UNIT/1 ML 3ML VIAL SQ SCH ×2 (06:00)
[2019-05-12 06:07] LABS: BASOPHILS % 0.2 % (0.0-1.0); EOSINOPHILS # (AUTO) 0.1 (0.0-0.4); EOSINOPHILS % 0.9 % (0.0-6.0); HEMATOCRIT 32.3 % (38.2-49.6); LYMPHOCYTES # (AUTO) 1.1 (1.0-3.2); LYMPHOCYTES % 11.4 % (18.0-39.1); MEAN CORPUSCULAR HEMOGLOBIN 30.9 pg (28-32); MEAN CORPUSCULAR HGB CONC 34.1 g/dL (31-35); MEAN CORPUSCULAR VOLUME 90.7 fL (81-99); MONOCYTES # (AUTO) 0.6 (0.2-0.8); MONOCYTES % 6.4 % (4.4-11.3); NEUTROPHILS # (AUTO) 7.7 (2.1-6.9); NEUTROPHILS % 79.8 % (38.7-80.0); PLATELET COUNT 146 x10e3/uL (140-360); RED BLOOD COUNT 3.56 x10e6/uL (4.3-5.7); RED CELL DISTRIBUTION WIDTH 16.4 % (11.7-14.4)
--- NOTE | 2019-05-12 06:09 | Diagnostic Imaging Report ---
EXAMINATION: CHEST SINGLE (PORTABLE) INDICATION: CHF. COMPARISON: 05/11/2019 at 5:38 AM hours. FINDINGS: AP view TUBES and LINES: NG tube has been removed. Stable left IJ central line. LUNGS: Lungs are not well inflated. Diffuse coarsening of the pulmonary interstitium and patchy airspace disease bilaterally, not significantly changed. PLEURA: No pneumothorax. Bilateral small pleural effusions. HEART AND MEDIASTINUM: The cardiomediastinal silhouette is unremarkable. BONES AND SOFT TISSUES: No acute osseous lesion. UPPER ABDOMEN: No free air under the diaphragm. IMPRESSION: NG tube has been removed. Otherwise, no significant interval change in bilateral interstitial edema. Signed by: Dr. Moe Zeng M.D. on 05/12/2019 6:06 AM
[2019-05-12 06:15] LABS: BLOOD UREA NITROGEN 7 mg/dL (7-26); BUN/CREATININE RATIO 12 (6-25); CALCIUM 8.3 mg/dL (8.4-10.2); CARBON DIOXIDE 34 mmol/L (22-29); CHLORIDE 93 mmol/L (98-107); CREATININE, SERUM 0.59 mg/dL (0.72-1.25); EST GLOMERULAR FILTRATION RATE > 60 ML/MIN (60-); MAGNESIUM 1.3 MG/DL (1.3-2.1); SODIUM 132 mmol/L (136-145)
[2019-05-12] MEDS ORDERED: HYDROCODONE/APAP 5MG-325MG TAB PO PRN (06:30)
[2019-05-12] MEDS: MEROPENEM 1GM 100 ML IV SCH ×3 (06:30→21:37)
[2019-05-12 06:40] LABS: GLUCOSE 94 mg/dL (74-118)
[2019-05-12] MEDS: IPRATROPIUM BROMIDE 0.02% 2.5 ML NEB NEB PRN ×2 (07:20→14:30)
[2019-05-12] MEDS: PANTOPRAZOLE 40 MG 10ML VIAL IV SCH (09:25)
[2019-05-12] MEDS: FUROSEMIDE 40 MG TAB PO SCH (09:26)
[2019-05-12] MEDS: DILTIAZEM HCL ER 120 MG CAP PO SCH (09:26)
[2019-05-12] MEDS: DIGOXIN 0.125 MG TAB PO SCH (09:26)
[2019-05-12] MEDS: METHIMAZOLE 5 MG TAB PO SCH (09:26)
--- NOTE | 2019-05-12 11:42 | NUR ---
PULMONARY MEDICINE date of encounter: 05/12/19 SUBJECTIVE: patient seen and examined. NS at 50 cc/hr IVF. patient with good UOP. K low again. (+) flatus, (+) BM. tolerating clears diet ROS: no headaches, no double vision OBJECTIVE: vitals more stable, reviewed per record. GEN NAD, calm ENT: NCAT, anicteric neck: supple, midline chest: bilateral a/e, rare rhonchi, decreased breath sounds at base CV: RR , no m/r Abd: post op, mostly nontender ext: no c/c/e int: no rash, no purpura IMP/PLAN secondary peritonitis perforated duodenal ulcer post operative state, s/p exploration and omental patch of ulcer post operative respiratory insufficiency, intubated/extubated pulmonary fibrosis, HSP vs IPF vs other (was under workup prior to event) fluid overload, ?improving afib htn smoker, quitting multiple occupational exposures, including to asbestos decrease IVF uptitrate PO diet per surgeon diuretics, K repletion continue abx, include vancomycin monitoring per ID local wound care CVC dc when feasible DVT ppx
[2019-05-12] MEDS ORDERED: POTASSIUM CHLORIDE 20 MEQ TAB CR PO SCH (12:00)
[2019-05-12] MEDS: POTASSIUM CHLORIDE 20 MEQ TAB CR PO SCH ×2 (12:16→14:30)
[2019-05-12] MEDS ORDERED: POTASSIUM CHLORIDE 20MEQ/100ML 200 ML IV ONE (14:00)
--- NOTE | 2019-05-12 15:32 | Diagnostic Imaging Report ---
Exam: Limited chest ultrasound History: Possible pleural effusions Comparison: None available Findings: No significant pleural effusions identified on either side. Impression: No pleural effusion identified. Signed by: Dr. Milton Anderson DO on 05/12/2019 3:29 PM
--- NOTE | 2019-05-12 15:32 | NUR ---
Nutrition Follow-up Note RD Recommendation(s) for Physician: -Rec advance diet as tolerated to GI soft diet -Rec Ensure Enlive BID when advance to full liquid diet Plan of Care: RD following, monitoring for tolerance and adequacy Nutrition reason for involvement: Follow up RD Assessment 05/12: Pt was discussed during AM rounds. Per RN, pt was tolerating clear liquid. +BM and +flatus. NPO/clear liquid x 5 days. Awaiting surgeon to visit pt for diet advancement. Visited pt in the room. Pt was walking with PT. Will continue to monitor and follow. 05/08: Initial encounter with patient. Pt was alert and writing down that he wanted to eat. Pt was orally intubated with an NGT to suction. NS at 125ml/hr. Pt corrected the RD using fingers to indicate that he is 74" tall. Ate well CERTIFIED RECREATIONAL THERAPIST and denied having any difficulty chewing or swallowing or any known food allergies Principal Problems/Diagnoses: bowel perforation PMH: HTN, COPD, PUD, atrial fibrillation pulmonary fibrosis, Graves GI: NGT discontinued, abdomen soft, round, tender, flatus + Skin: surgical incision Labs: (05/12) Na 132 L, K 3.0 L, creatinine 0.59 L, Ca 8.3 L (05/08/2019) lab results reviewed Meds: KCl, abx, lasix, protonix Ht:74" Wt:210lbs; 213.5lb (fluids gain) BMI:27kg/m2 IBW:190lbs Malnutrition Evaluation (05/08/19) The patient does not meet criteria for a specified degree of malnutrition at this time. Will re-evaluate at follow-up as appropriate. Nutrition Prescription (Diet Order):clear liquids Estimated Nutritional Needs: 1909 calories/day (20 kcal/kg/ CBW) 95g protein/day (1 g pro/kg/ CBW) Diet Adequacy: Not meeting calorie needs, Not meeting protein needs Diet Education Needs Assessment: Diet education not indicated. Nutrition Care Level: Moderate Nutrition Diagnosis: Altered GI function related to duodenal ulcer perforation as evidenced by an exploratory laparotomy Goal: Patient will meet 75-100% of estimated needs by follow up Progress: Progressing Interventions: Modified diet Monitoring/Evaluation: Total energy intake, Total protein intake, Modified diet, Prescription medication, Weight change, Labs, GI tolerance Signed: Mita Bethea MS, RD, LD
[2019-05-12] MEDS ORDERED: POTASSIUM CHLORIDE 20 MEQ TAB CR PO STA (17:32)
[2019-05-12] MEDS ORDERED: MORPHINE SULFATE INJ 4 MG/ML INJ 1ML IV PRN (17:45)
[2019-05-12] MEDS: ENOXAPARIN SOD INJ 40 MG/0.4 ML SYR SC SCH (17:50)
[2019-05-12] MEDS: LISINOPRIL 10 MG TAB PO SCH (20:58)
--- NOTE | 2019-05-12 21:02 | Progress Note ---
DATE: 05/12/2019 Medicine Progress Covering for Dr. Acosta. SUBJECTIVE: The patient is doing well today with no other complaints. He is still on nasal cannula. He is still not significantly weak, but he does not want to go to any facility at this time. I discussed with him about [facility]. He seems to be more interested in being discharged to home soon. OBJECTIVE: VITAL SIGNS: Temperature is 99.3, pulse 96, respiratory rate 17, blood pressure 116/64, and pulse ox 92% on 3 L nasal cannula. GENERAL: Not in acute distress. Alert and oriented x3. Cooperative on examination. HEENT: Head is normocephalic and atraumatic. Eyes; pupils are equal, round, and reactive to light bilaterally. Extraocular movements are intact. Has poor dentition. NECK: Supple. Good range of motion throughout. Throat, no evidence of erythema or exudates in the posterior pharynx. PULMONARY: Clear to auscultation bilaterally. No wheezing. No rales. No rhonchi appreciated. CARDIOVASCULAR: Positive S1 and S2. No murmurs, rubs, or gallop appreciated. ABDOMEN: Soft, nondistended, and nontender to palpation. Bowel sounds present. MUSCULOSKELETAL: Strength is 5/5 throughout. No evidence of any muscle deficits on examination. NEUROLOGIC: Cranial nerves II through XII are grossly intact. No evidence of any neurological deficits on exam. SKIN: Intact. Warm to touch. Good cap refill. PSYCHIATRIC: Normal affect and mood. EXTREMITIES: No edema. Good range of motion throughout. LABORATORY FINDINGS: Show white count 9.6, hemoglobin 11, hematocrit 32, and platelets of 146. Chemistry; sodium 132, potassium 3, chloride 93, bicarb 34, anion gap of 8, BUN 7, and creatinine is 0.9. IMPRESSION: 1. Perforated bowel, status post repair. 2. Peritonitis with shock, resolved. 3. Chronic atrial fibrillation. 4. Anemia. 5. Hypokalemia. 6. Medically debilitated. PLAN: At this time, continue with IV antibiotics. He could be discharged eventually on oral antibiotics. Continue same plan of care. Get a.m. labs. Replace potassium. The patient was treated at [facility] facility placement. I discussed this plan of care with the nursing staff and the patient at bedside. No other issues at this time. Dr. Acosta will be available tomorrow and work on discharge planning. MD ESTELITA Tijerina/KAIT /[id number]
[2019-05-12] MEDS: SODIUM CHLORIDE 0.9% 1000ML 1,000 ML IV SCH (21:25)
[2019-05-13] VITALS (8 sets, daily range): BP systolic 127–138; BP diastolic 72–86
[2019-05-13] MEDS: VANCOMYCIN 1GM/NS 250 ML 250 ML IV SCH ×2 (00:54→13:13)
[2019-05-13] MEDS: METOPROLOL TARTRATE INJ 1 MG/ML VIAL IV SCH ×6 (02:00→21:09)
[2019-05-13] MEDS: MEROPENEM 1GM 100 ML IV SCH ×3 (05:48→21:09)
--- NOTE | 2019-05-13 06:14 | Diagnostic Imaging Report ---
EXAMINATION: CHEST SINGLE (PORTABLE) INDICATION: Pulmonary fibrosis. COMPARISON: 05/12/2019 FINDINGS: AP view TUBES and LINES: Stable left IJ central line. LUNGS: Diffuse coarsening of the pulmonary interstitium and multifocal patchy airspace disease bilaterally, not significantly changed. PLEURA: No pneumothorax. Bilateral small pleural effusions. HEART AND MEDIASTINUM: The cardiac silhouette is partially obscured, however, it appears enlarged. BONES AND SOFT TISSUES: No acute osseous lesion. Soft tissues are unremarkable. UPPER ABDOMEN: No free air under the diaphragm. IMPRESSION: No significant interval change. Diffuse coarsening of the pulmonary interstitium and multifocal patchy airspace disease bilaterally, not significantly changed. Signed by: Dr. Moe Zeng M.D. on 05/13/2019 6:10 AM
[2019-05-13 06:39] LABS: BASOPHILS % 0.2 % (0.0-1.0); EOSINOPHILS # (AUTO) 0.1 (0.0-0.4); EOSINOPHILS % 0.6 % (0.0-6.0); HEMATOCRIT 31.2 % (38.2-49.6); HEMOGLOBIN 10.5 g/dL (14.0-18.0); LYMPHOCYTES # (AUTO) 1.1 (1.0-3.2); LYMPHOCYTES % 10.4 % (18.0-39.1); MEAN CORPUSCULAR HEMOGLOBIN 30.5 pg (28-32); MEAN CORPUSCULAR HGB CONC 33.7 g/dL (31-35); MEAN CORPUSCULAR VOLUME 90.7 fL (81-99); MONOCYTES # (AUTO) 0.5 (0.2-0.8); MONOCYTES % 5.2 % (4.4-11.3); NEUTROPHILS # (AUTO) 8.4 (2.1-6.9); NEUTROPHILS % 82.1 % (38.7-80.0); PLATELET COUNT 146 x10e3/uL (140-360); RED BLOOD COUNT 3.44 x10e6/uL (4.3-5.7); RED CELL DISTRIBUTION WIDTH 16.8 % (11.7-14.4)
[2019-05-13 06:46] LABS: ANION GAP 9.6 mmol/L (8-16); BLOOD UREA NITROGEN 7 mg/dL (7-26); BUN/CREATININE RATIO 11 (6-25); CARBON DIOXIDE 32 mmol/L (22-29); CHLORIDE 92 mmol/L (98-107); CREATININE, SERUM 0.62 mg/dL (0.72-1.25); EST GLOMERULAR FILTRATION RATE > 60 ML/MIN (60-); GLUCOSE 169 mg/dL (74-118); POTASSIUM 3.6 mmol/L (3.5-5.1); SODIUM 130 mmol/L (136-145)
[2019-05-13] MEDS: IPRATROPIUM BROMIDE 0.02% 2.5 ML NEB NEB PRN (08:50)
[2019-05-13] MEDS: DIGOXIN 0.125 MG TAB PO SCH (09:34)
[2019-05-13] MEDS: DILTIAZEM HCL ER 120 MG CAP PO SCH (09:34)
[2019-05-13] MEDS: PANTOPRAZOLE 40 MG 10ML VIAL IV SCH (09:34)
[2019-05-13] MEDS: FUROSEMIDE 40 MG TAB PO SCH (09:34)
[2019-05-13] MEDS: METHIMAZOLE 5 MG TAB PO SCH (09:35)
--- NOTE | 2019-05-13 13:20 | NUR ---
PULMONARY MEDICINE date of encounter: 05/13/19 SUBJECTIVE: patient seen and examined. 10 L/min oxygen now, patient desaturated to 87% per patient. eating solids, about 50% of tray BM ROS: no headaches, no double vision OBJECTIVE: vitals more stable, reviewed per record. GEN NAD, calm ENT: NCAT, anicteric neck: supple, midline chest: bilateral a/e, rare rhonchi, decreased breath sounds at base CV: RR , no m/r Abd: post op, mostly nontender ext: no c/c/e int: no rash, no purpura IMP/PLAN secondary peritonitis perforated duodenal ulcer post operative state, s/p exploration and omental patch of ulcer post operative respiratory insufficiency, intubated/extubated pulmonary fibrosis, HSP vs IPF vs other (was under workup prior to event) fluid overload, ?improving afib htn smoker, quitting multiple occupational exposures, including to asbestos uptitrate PO diet per surgeon diuretics, K repletion. decrease diuretics soon continue abx, include vancomycin monitoring per ID local wound care CVC dc when feasible ok for full anticoagulation for afib per cardiology. no significant pleural effusion. DVT ppx
[2019-05-13] MEDS ORDERED: ONDANSETRON HCL 4 MG ORAL DISINTEGRATING TAB PO PRN (15:15)
--- NOTE | 2019-05-13 16:11 | NUR ---
Dr. Acosta to bedside and spoke to pt about discharge plan. Pt informed Dr. Acosta that he does not want to return to [facility]. Dr. Acosta discussed inpatient rehab with pt. He is agreeable. States he does not want to go to [facility]. CM informed him of other inpatient rehab facilities in the area. Pt chose [facility]. Choice letter signed and placed in chart. Copy to pt. Pt states he would like to speak to liaison of [facility] for a couple of questions. CM informed garfield Cheema for [facility] of referral and pt's request to speak with her. Anette will be by today to speak to pt and to [facility]. MOT initiated and placed with pt's packet at nurses station. [address] Lou, [place] [id number]
[2019-05-13] MEDS: SODIUM CHLORIDE 0.9% 1000ML 1,000 ML IV SCH (17:25)
[2019-05-13] MEDS: ENOXAPARIN SOD INJ 40 MG/0.4 ML SYR SC SCH (18:06)
[2019-05-13] MEDS: LISINOPRIL 10 MG TAB PO SCH (21:09)
[2019-05-14] VITALS (8 sets, daily range): BP systolic 113–157; BP diastolic 63–81
[2019-05-14] MEDS: VANCOMYCIN 1GM/NS 250 ML 250 ML IV SCH ×2 (01:00→13:00)
[2019-05-14] MEDS: METOPROLOL TARTRATE INJ 1 MG/ML VIAL IV SCH ×3 (01:01→10:00)
[2019-05-14] MEDS: MEROPENEM 1GM 100 ML IV SCH ×2 (05:23→14:00)
--- NOTE | 2019-05-14 07:05 | NUR ---
RCD PT AT BED PT IS ALERT AND ORIENTED PT RESTING ON BED NO SIGNS PF ANY DISTRESS NOTED IV PATENT BED LOW AND LOCKED CALL LIGHT IN REACH
[2019-05-14] MEDS ORDERED: FUROSEMIDE INJ 10 MG/ML 2 ML VIAL IV NR (08:00)
[2019-05-14] MEDS: FUROSEMIDE 40 MG TAB PO SCH (09:00)
[2019-05-14] MEDS: PANTOPRAZOLE 40 MG 10ML VIAL IV SCH (09:00)
[2019-05-14] MEDS: DIGOXIN 0.125 MG TAB PO SCH (09:00)
[2019-05-14] MEDS: METHIMAZOLE 5 MG TAB PO SCH (09:00)
[2019-05-14] MEDS: DILTIAZEM HCL ER 120 MG CAP PO SCH (09:00)
[2019-05-14] MEDS ORDERED: METOPROLOL TARTRATE INJ 1 MG/ML VIAL IV PRN (10:30)
[2019-05-14] MEDS ORDERED: DILTIAZEM HCL ER 120 MG CAP PO SCH (10:30)
[2019-05-14] MEDS: IPRATROPIUM BROMIDE 0.02% 2.5 ML NEB NEB PRN ×2 (10:32→16:32)
[2019-05-14] MEDS ORDERED: DILTIAZEM HCL ER 120 MG CAP PO NR (10:45)
[2019-05-14] MEDS ORDERED: FUROSEMIDE INJ 10 MG/ML 4 ML VIAL IV ONE (10:50)
--- NOTE | 2019-05-14 12:11 | NUR ---
PT ACCEPTED TO [address] , [facility], [address] CALL REPORT TO [phone] ADMINISTRATION IS ALYSHA GUSTAFSON ATTENDING IS DR RICH, ROOM WILL BE ASSIGNED WHEN THEY CALL REPORT, PLEASE SEND AFTER 5 PM.
--- NOTE | 2019-05-14 12:46 | NUR ---
PULMONARY MEDICINE date of encounter: 05/14/19 SUBJECTIVE: patient seen and examined. 5 L/min oxygen now eating solids no resp distress ROS: no headaches, no double vision OBJECTIVE: vitals more stable, reviewed per record. GEN NAD, calm ENT: NCAT, anicteric neck: supple, midline chest: bilateral a/e, few rales, decreased breath sounds at base CV: RR , no m/r Abd: post op, mostly nontender ext: no c/c/e int: no rash, no purpura IMP/PLAN secondary peritonitis perforated duodenal ulcer post operative state, s/p exploration and omental patch of ulcer post operative respiratory insufficiency, intubated/extubated pulmonary fibrosis, HSP vs IPF vs other (was under workup prior to event) fluid overload, ?improving afib htn smoker, quitting multiple occupational exposures, including to asbestos PO diet diuretics, K repletion continue abx, include vancomycin monitoring per ID local wound care ok for full anticoagulation for afib per cardiology. no pulmonary procedures planned now dvt ppx
--- NOTE | 2019-05-14 15:16 | NUR ---
PAGED AND NOTIFIED TO DR RAYMOND PT IS ACCEPTED BY [facility] ,GOT THE DISCHARGE ORDER ,CONTINUE PRESENT MEDICATION AND KEEP IV LINE
--- NOTE | 2019-05-14 16:55 | NUR ---
REPORT GIVEN TO JOSHUA FULTON
[2019-05-14] MEDS: ENOXAPARIN SOD INJ 40 MG/0.4 ML SYR SC SCH (17:00)
--- NOTE | 2019-05-14 19:30 | NUR ---
Received patient in bed watching tv. AAOx3, no resp distress. Denies pain at this time. Call light within reach and instructed to call for assistance.
[2019-05-14] MEDS ORDERED: LISINOPRIL 10 MG TAB PO SCH (21:00)
[2019-05-15] MEDS ORDERED: DILTIAZEM HCL ER 120 MG CAP PO SCH (09:00)
== END 2019-05-14 21:37 | DRG 853 ==
LOC: ER 14:49 → OR 19:35 → ERHOLD 19:59 → ICU 21:00 → MED/SURG2 05-11 13:34
PROVIDERS: ADMIT Internal Medicine; ATTEND Internal Medicine
PROC: 0WJP0ZZ Inspection of Gastrointestinal Tract, Open Approach (ICD-10-PCS; 2019-05-07)
PROC: 02HV33Z Insertion of Infusion Device into Superior Vena Cava, Percutaneous Approach (ICD-10-PCS; 2019-05-07)
PROC: 0DU907Z Supplement Duodenum with Autologous Tissue Substitute, Open Approach (ICD-10-PCS; 2019-05-07)
PROC: 5A1945Z Respiratory Ventilation, 24-96 Consecutive Hours (ICD-10-PCS; principal; 2019-05-07 19:50)
DX: A41.9 Sepsis, unspecified organism (principal); R65.21 Severe sepsis with septic shock; K63.1 Perforation of intestine (nontraumatic); J95.821 Acute postprocedural respiratory failure; K65.9 Peritonitis, unspecified; D68.8 Other specified coagulation defects; J44.9 Chronic obstructive pulmonary disease, unspecified; Z79.01 Long term (current) use of anticoagulants; E03.9 Hypothyroidism, unspecified; M19.90 Unspecified osteoarthritis, unspecified site; E11.9 Type 2 diabetes mellitus without complications; I10 Essential (primary) hypertension; I95.81 Postprocedural hypotension; Z77.090 Contact with and (suspected) exposure to asbestos; J84.89 Other specified interstitial pulmonary diseases; Z79.52 Long term (current) use of systemic steroids; F17.200 Nicotine dependence, unspecified, uncomplicated; E66.9 Obesity, unspecified; Z68.26 Body mass index [BMI] 26.0-26.9, adult; I48.0 Paroxysmal atrial fibrillation; E87.6 Hypokalemia
CPT/HCPCS: 36415; 36600; 51700; 70450; 71045; 74177; 76604; 80048; 80053; 80202; 81001; 82150; 82550; 82553; 82805; 82948; 83605; 83690; 83735; 84100; 84443; 84484; 85025; 85610; 85730; 87040; 87071; 87075; 87205; 93005; 93306; 94002; 94003; 94640; 96372; 97139; 99284; C1751; J0610; J1100; J1160; J1650; J1940; J2185; J2248; J2270; J2370; J2405; J2543; J2550; J3370; J3475; J3480; J7030; J7040; J7050; J7799; Q9967